=== PATIENT | male | born 1930 | race Caucasian/White ===

== ENCOUNTER → 2016-11-07 | Outpatient (CLI) | payer BC ==
[~2016-11-07] MED LIST: AMLO-114 PO; AMLO10TA2 PO; ATEN50TA8 PO; CARB1TAB59 PO; CARB25TA12 PO; CARB50TA3 PO; GABA-112 PO; HYDR-5688 PO; IPRA1AER2 INH; NAPR1TAB9 PO; NXM/40 PO; PRAV20TA PO; PRED1SUS3 OPL; RIVA1TAB4 PO; SIMV20TA2 PO; SPRIN/30 INH; TAMS0.4C38 PO; TIOTCAP INH; TRAM-10 PO; TRAM-453 PO
[2016-11-07 14:34] LABS: BASO % 0.3 %; BASO ABS # 0.03 K/uL (0-0.2); COMPLETE YES; EOS % 1.6 %; HEMATOCRIT 44.2 % (42-52); IG% 0.1 %; LYMPH % 21.9 %; LYMPH ABS # 2.37 K/uL (1.2-3.4); MEAN CELL VOLUME 94.8 fL (80-100); MEAN CORPUSCULAR HEMOGLOBIN 32.2 pg (25-34); MEAN CORPUSCULAR HGB CONC 33.9 g/dl (32-36); MEAN PLATELET VOLUME 11.9 fL (7.4-10.4); MONO % 6.5 %; NEUT % 69.6 %; PLATELET COUNT 155 K/uL (130-400); RED BLOOD COUNT 4.66 M/uL (4.7-6.1); WHITE BLOOD COUNT 10.81 K/uL (4.8-10.8)
[2016-11-07 14:48] LABS: ALT/SGPT 9 U/L (12-78); AST/SGOT 15 U/L (15-37); BLOOD UREA NITROGEN 19 mg/dl (7-18); BUN/CREATININE RATIO 19.3 (10-20); CALCIUM 9.2 mg/dl (8.5-10.1); CARBON DIOXIDE 28 mmol/L (21-32); CHLORIDE 103 mmol/L (98-107); CREATININE 0.96 mg/dl (0.60-1.40); GLUCOSE 89 mg/dl (70-99); SODIUM 139 mmol/L (136-145)
[2016-11-07 14:52] LABS: ALB/GLOB RATIO 1.3 (0.9-2); ALKALINE PHOSPHATASE 81 U/L (45-117); CHOLESTEROL 119 mg/dl (0-200); CHOLESTEROL/HDL RATIO 3.1; HDL CHOLESTEROL 38 mg/dl; LDL CHOLESTEROL CALCULATED 61 mg/dl; TOTAL IRON BINDING CAPACITY 277 mcg/dl (250-450); TRIGLYCERIDES 100 mg/dl (0-150); VERY LOW DENSITY LIPOPROT CALC 20 mg/dl
--- NOTE | 2016-11-15 06:31 | CODING QUERY MEDICAL NECESSITY ---
SUPPORTING DIAGNOSIS NEEDED A supporting diagnosis is required for the test/procedure performed on this patient in order for us to be reimbursed by the patient's insurance. Please provide a supporting diagnosis for the following test/procedure listed below next to the test name along with your signature. *If there is no additional diagnosis for this patient that would support the following test/procedure please document that below next to the test/procedure. Test(s)/Procedure(s) that require a supporting diagnosis: DOS 11/07 * Vitamin B12 DIAGNOSIS: * Iron DIAGNOSIS: Provider Signature: Date: Thank you Zahra Jimenez Health Information Management Once completed, please kindly fax back to [phone] For questions please call [phone]
--- NOTE | 2016-11-15 06:33 | EDITING REQUIRED CODING QUERY ---
SUPPORTING DIAGNOSIS NEEDED A supporting diagnosis is required for the test/procedure performed on this patient in order for us to be reimbursed by ([employer]). Please provide a supporting diagnosis for the following tests listed below next to the test name along with your signature. *If there is no additional diagnosis for this patient that would support the following test/procedure please document that below next to the test/procedure. Tests that require a supporting diagnosis: DOS 11/07 * Vitamin B12 DIAGNOSIS: Tingling R20.2 * Iron DIAGNOSIS: Prediabetes R73.09 Providers Signature: Thank you Zahra Jimenez
== END | disposition home or self-care (01) ==
LOC: C.LAB1850 12:42
PROVIDERS: ATTEND Internal Medicine Cardiovascular Disease
DX: E78.00 Pure hypercholesterolemia, unspecified (principal); I25.10 Atherosclerotic heart disease of native coronary artery without angina pectoris; D72.829 Elevated white blood cell count, unspecified; I71.4 Abdominal aortic aneurysm, without rupture; R20.2 Paresthesia of skin; R73.09 Other abnormal glucose

== ENCOUNTER → 2017-05-15 | Outpatient (CLI) | payer BC ==
[~2017-05-15] MED LIST changes: -ATEN50TA8 PO
--- NOTE | 2017-05-15 09:36 | DIAGNOSTIC IMAGING REPORT ---
ABDOMEN 2VIEW W/PA CHEST RTN HISTORY:87 [id number] Fecal incontinence COMPARISON: Thoracic spine radiographs 10/23/2012 TECHNIQUE: Frontal view of the chest with erect and supine views of the abdomen. FINDINGS: The lungs are hyperinflated. There is atherosclerosis of the aorta. Cardiac silhouette is within normal limits. No pneumothorax, pleural effusion, focal airspace consolidation or overt pulmonary edema. No gross pneumoperitoneum on the upright projection. There is moderate to extensive volume of formed stool seen throughout the midabdomen. The bowel gas pattern appears to be nonobstructive. No definite urolith. Atherosclerosis of the aorta and iliac vasculature noted. Moderate degenerative changes are seen within the hips and throughout the spine. IMPRESSION: 1. Hyperinflation without acute cardiopulmonary process. 2. Nonobstructive bowel gas pattern without pneumoperitoneum. 3. Moderate to extensive colonic stool volume may reflect constipation within the appropriate clinical setting. The above report was generated using voice recognition software. It may contain grammatical, syntax or spelling errors. Electronically signed by: Jed Pederson 05/15/2017 9:34 AM Dictated Date/Time: 05/15/2017 9:31 AM
== END | disposition home or self-care (01) ==
LOC: C.RAD1850 09:04
PROVIDERS: ATTEND Physician Assistant
DX: R15.9 Full incontinence of feces (principal)

== ENCOUNTER → 2017-05-17 | Outpatient (CLI) | payer BC ==
[~2017-05-17] MED LIST changes: -AMLO10TA2 PO; -CARB1TAB59 PO; -HYDR-5688 PO; -IPRA1AER2 INH; -NAPR1TAB9 PO; -PRAV20TA PO; -RIVA1TAB4 PO; -SPRIN/30 INH; -TAMS0.4C38 PO; -TRAM-453 PO
--- NOTE | 2017-05-17 13:00 | DIAGNOSTIC IMAGING REPORT ---
ABDOMEN 2 VIEWS CLINICAL HISTORY: CONSTIPATION COMPARISON STUDY: 05/15/2017 FINDINGS: There is persistent fecal retention. There are no transition zones indicate bowel obstruction. No free air is visualized. There are upper abdominal calcifications. While these may in part be vascular, renal calcifications cannot be excluded. IMPRESSION: 1. No evidence of bowel obstruction. No evidence of free air 2. Moderate fecal retention similar to the prior study Electronically signed by: Viet Aragon M.D. 05/17/2017 12:58 PM Dictated Date/Time: 05/17/2017 12:56 PM
== END | disposition home or self-care (01) ==
LOC: C.RAD1850 12:14
PROVIDERS: ATTEND Physician Assistant
DX: K59.00 Constipation, unspecified (principal)

== ENCOUNTER → 2017-05-22 | Day surgery (SDC) | payer BC ==
[2017-04-25 15:13] VITALS: Ht 182.9 cm; Wt 89.5 kg
[~2017-05-22] VITALS: Ht 182.9 cm; Wt 89.5 kg
[~2017-05-22] MED LIST changes: +500ML BSS 0.3ML EPI 1:1000PF IRRIG ONE; +ACETAMINOPHEN 325 MG TAB PO PRN; +AMLO10TA2 PO; +AMVISC PLUS 0.8ML SYRINGE INT OCU ONE; +ATROPINE SULFATE 0.1 MG/ML 5ML SYR IV PRN; +BSS FLUSH ONE; +CARB1TAB59 PO; +CYCLOPENTOLATE HCL 1% OP SOLN PER DROP CHARGE OPL SCH; +EpHEDrine SULFATE INJ 50 MG/ML AMP IV PRN; +EpINEphrine INJ 1MG/ML AMP 1 MG/ML AMP ONE; +FENTANYL CITRATE INJ 50 MCG/1 ML 2 ML VIAL IV PRN; +HYDR-5688 PO; +IPRA1AER2 INH; +LACTATED RINGER'S 1000ML 500 ML IV SCH; +LIDOCAINE 3.5% OPH GEL PER APPLICATION CHARGE ONE; +LIDOCAINE HCL 1% MPF 2 ML VIAL ONE; +MIDAZOLAM HCL 1 MG/ML 2ML VIAL ONE; +NAPR1TAB9 PO; +OCUCOAT 1 ML SOLN IO ONE; +ONDANSETRON INJ 2 MG/ML 2 ML VIAL IV PRN; +PHENYLEPHRINE HCL 10% OP SOLN PER DROP CHARGE OPL SCH; +POVIDONE-IODINE OP SOLN 30 ML BTL ONE; +PRAV20TA PO; +PROPARACAINE 0.5% OP SOLN PER DROP CHARGE OPL SCH; +RIVA1TAB4 PO; +SPRIN/30 INH; +TAMS0.4C38 PO; +TOBRAMYCIN/DEXAMETHASONE OPH OINT PER APPLN CHARGE ONE; +TRAM-453 PO
[2017-05-22] MEDS: PHENYLEPHRINE HCL 2.5% OP SOLN PER DROP CHARGE OPL SCH ×2 (06:52→06:59)
[2017-05-22] MEDS: TROPICAMIDE 1% OP SOLN PER DROP CHARGE OPL SCH ×2 (06:53→07:01)
[2017-05-22] MEDS: KETOROLAC 0.5% OP SOLN PER DROP CHARGE OPL SCH ×2 (06:55→07:12)
[2017-05-22] MEDS: GATIFLOXACIN OP SOLN PER DROP CHARGE OPL SCH ×2 (06:56→07:12)
--- NOTE | 2017-05-22 06:57 | History & Physical Bridge - SC ---
H&P Re-Evaluation Bridge Note: I have examined the patient, reviewed the History & Physical and in the interval since the performance of the History & Physical I have noted the following changes of clinical significance: Diagnosis: Left Cataract Procedure: Left Cataract Removal with Lens Implant No changes noted
--- NOTE | 2017-05-22 07:51 | [facility] Operative Report ---
Operative Report Date of Service May 22, 2017. Operative Report 1. PREOPERATIVE DIAGNOSIS: Cataract of the left eye. 2. POSTOPERATIVE DIAGNOSIS: Same. 3. PROCEDURE: Phacoemulsification with intraocular lens implantation of the left eye. SURGEON: Dr. Napoleon Da Silva. ANESTHESIA: Topical Lidocaine gel, 1% Non- Preserved intracameral Lidocaine, and monitored intravenous sedation. INDICATIONS FOR THE PROCEDURE: The patient is a 87 - year-old male with a history of cataract of the left eye causing significant visual impairment. The details of the proposed procedure were explained to the patient who asked appropriate questions and following discussion of all risks, benefits and alternatives agreed to have the procedure done. 4. OPERATION AND FINDINGS: DESCRIPTION OF PROCEDURE: After informed consent was obtained, the patient was brought to the Operating Room at the [facility]. The patient was placed in a supine position and then the left eye was prepped and draped in the usual sterile fashion for intraocular surgery. A drop of topical Lidocaine gel was placed in the operative eye. A wire lid speculum was then placed in the fornices. A corneal paracentesis was then created temporally. The Non-Preserved Lidocaine was then instilled into the anterior chamber. The anterior chamber was then pressurized with viscoelastic. A 2.0 mm clear corneal incision was then created temporally. A cystotome was inserted into the anterior chamber and used to create a tear in the anterior lens capsule. This capsular tear was then used to create a small flap and the flap was dragged in a counterclockwise direction in order to create a continuous curvilinear capsulorrhexis. Hydrodissection was accomplished with balanced salt solution. Phacoemulsification of the lens nucleus was then performed in a standard [id number] technique. The phaco time was 36 seconds with an average power of 20 %. The remaining cortical material was removed using irrigation aspiration. The capsular bag was then filled with viscoelastic. A [employer] Lomb MI60L +19.0 diopters lens was then loaded into the injector and injected into the capsular bag. The remaining viscoelastic was removed with the irrigation aspiration handpiece. The wound was hydrated and then checked and found to be watertight. The intraocular pressure was checked and found to be adequate. The wire lid speculum was removed and the patient's face was cleaned and dried. TobraDex ointment was placed in the inferior fornix. The patient was discharged to the Recovery Room having tolerated the procedure well. There were no complications. The patient will be seen tomorrow in the office for follow-up. I attest to the content of the Intraoperative Record and any orders documented therein. Any exceptions are noted below.
--- NOTE | 2017-05-22 07:51 | Discharge Instructions-SurgCtr ---
Discharge Instructions Date of Service May 22, 2017. Visit Reason for Visit: Left Cataract Discharge Discharge Diagnosis / Problem: cataract Discharge Goals Goal(s): Improve function Activity Recommendations Activity Limitations: per Instructions/Follow-up section Anesthesia . Post Anesthesia Instructions: If you have had General Anesthesia or IV Sedation: * Do not drive today. * Resume driving when surgeon permits. * Do not make important decisions or sign legal documents today. * Call surgeon for: 1. Temperature elevations greater than 101 degrees F. 2. Uncontrollable pain. 3. Excessive bleeding. 4. Persistent nausea and vomiting. 5. Medication intolerance (nausea, vomiting or rash). * For nausea and vomiting use only clear liquids such as: tea, soda, bouillon until nausea subsides, then gradually increase diet as tolerated. * If you have any concerns or questions, call your surgeon's office. If physician is unavailable and it is an emergency, call 911 or go to the nearest emergency room. . Instructions / Follow-Up Instructions / Follow-Up ACTIVITY RECOMMENDATIONS: * No strenuous lifting, jogging or running for 4 days * No swimming or yard work for 1 week. * Limited bending is permitted, such as putting on shoes. RETURN TO SCHOOL/WORK: No work until seen by physician in office. MEDICATIONS: Resume previous medications unless instructed otherwise by your surgeon. This includes eye drops for glaucoma. Zymaxid/Gatifloxacin (leigh cap) - one drop every 2 hours until bedtime Nevanac/Ilevro/Prolensa/Ketorolac (quinones cap) - one drop every 4 hours until bedtime Prednisolone/Durezol (white/pink cap, SHAKE WELL) - one drop every 2 hours until bedtime Starting tomorrow - all 3 drops every 4 hours until seen in the office Optive drops - as needed for discomfort SPECIAL CARE INSTRUCTIONS: * Wear eyeshield when sleeping, for four nights. * You may wear your own glasses or sunglasses while awake. * You may read or watch TV * You may shower and wash your face, but be gentle around the eye and pat dry. * Blurry vision and mild irritation are normal. * Call office if pain is more severe or vision becomes dark at . FOLLOW UP VISIT: Follow-up with Dr Da Silva tomorrow. Diet Recommendations Home Diet: resume previous diet Pending Studies Studies pending at discharge: no Medical Emergencies . Who to Call and When: Medical Emergencies: If at any time you feel your situation is an emergency, please call 911 immediately. . Non-Emergent Contact Non-Emergency issues call your: Crocheter . . "Provider Documentation" section prepared by Napoleon Da Silva. .
[2017-05-22 07:57] VITALS: TEMP 36.2
--- NOTE | 2017-05-22 08:09 | Anesthesia Progress Nt - [facility] ---
Anesthesia Post Op Note Date & Time May 22, 2017 at 08:09 Vital Signs Pain Intensity: 0 Vital Signs Past 12 Hours Date Time Temp Pulse Resp B/P (MAP) Pulse Ox O2 Delivery O2 Flow Rate FiO2 05/22/17 07:57 36.2 61 18 128/87 (101) 97 Room Air 05/22/17 06:39 36.5 71 20 122/75 (91) 95 Room Air Notes Mental Status: alert / awake / arousable, participated in evaluation Pt Amnestic to Procedure: Yes Nausea / Vomiting: adequately controlled Pain: adequately controlled Airway Patency, RR, SpO2: stable & adequate BP & HR: stable & adequate Hydration State: stable & adequate Anesthetic Complications: no major complications apparent
[2017-05-22 08:19] VITALS: BP 135/81; PULSE 66; O2SAT 97
== END | disposition home or self-care (01) ==
LOC: X.SURG 06:26
PROVIDERS: ATTEND Ophthalmology
DX: H26.9 Unspecified cataract (principal); I71.4 Abdominal aortic aneurysm, without rupture; I25.10 Atherosclerotic heart disease of native coronary artery without angina pectoris; I10 Essential (primary) hypertension; I48.92 Unspecified atrial flutter; J44.9 Chronic obstructive pulmonary disease, unspecified; E78.5 Hyperlipidemia, unspecified; G20 Parkinson's disease; R73.03 Prediabetes; N40.1 Benign prostatic hyperplasia with lower urinary tract symptoms; N13.8 Other obstructive and reflux uropathy; K21.9 Gastro-esophageal reflux disease without esophagitis; G62.9 Polyneuropathy, unspecified; F41.9 Anxiety disorder, unspecified; Z79.899 Other long term (current) drug therapy

== ENCOUNTER → 2017-05-24 | Outpatient (CLI) | payer BC ==
[~2017-05-24] MED LIST changes: -500ML BSS 0.3ML EPI 1:1000PF IRRIG ONE; -ACETAMINOPHEN 325 MG TAB PO PRN; -AMVISC PLUS 0.8ML SYRINGE INT OCU ONE; -ATROPINE SULFATE 0.1 MG/ML 5ML SYR IV PRN; -BSS FLUSH ONE; -CYCLOPENTOLATE HCL 1% OP SOLN PER DROP CHARGE OPL SCH; -EpHEDrine SULFATE INJ 50 MG/ML AMP IV PRN; -EpINEphrine INJ 1MG/ML AMP 1 MG/ML AMP ONE; -FENTANYL CITRATE INJ 50 MCG/1 ML 2 ML VIAL IV PRN; -LACTATED RINGER'S 1000ML 500 ML IV SCH; -LIDOCAINE 3.5% OPH GEL PER APPLICATION CHARGE ONE; -LIDOCAINE HCL 1% MPF 2 ML VIAL ONE; -MIDAZOLAM HCL 1 MG/ML 2ML VIAL ONE; -OCUCOAT 1 ML SOLN IO ONE; -ONDANSETRON INJ 2 MG/ML 2 ML VIAL IV PRN; -PHENYLEPHRINE HCL 10% OP SOLN PER DROP CHARGE OPL SCH; -POVIDONE-IODINE OP SOLN 30 ML BTL ONE; -PROPARACAINE 0.5% OP SOLN PER DROP CHARGE OPL SCH; -TOBRAMYCIN/DEXAMETHASONE OPH OINT PER APPLN CHARGE ONE
== END | disposition home or self-care (01) ==
LOC: C.LAB1850 10:14
PROVIDERS: ATTEND Physician Assistant
DX: R19.7 Diarrhea, unspecified (principal)

== ENCOUNTER 2017-06-17 15:59 | Emergency (ER) | payer BC ==
[~2017-06-17] VITALS: Ht 185.4 cm; Wt 88.2 kg
[~2017-06-17 15:59] MED LIST changes: -AMLO10TA2 PO; -CARB1TAB59 PO; -GABA-112 PO; -HYDR-5688 PO; -IPRA1AER2 INH; -NAPR1TAB9 PO; -PRAV20TA PO; -RIVA1TAB4 PO; -SPRIN/30 INH; -TAMS0.4C38 PO; -TRAM-10 PO; -TRAM-453 PO
[2017-06-17 16:01] VITALS: BP 140/90; PULSE 81; TEMP 36.8; O2SAT 98; Ht 185.4 cm; Wt 88.2 kg
[2017-06-17] MEDS ORDERED: HYDR-5688 PO (16:11)
--- NOTE | 2017-06-17 16:25 | EMERGENCY ROOM VISIT NOTE ---
ED Visit Note First contact with patient: 16:05 I have seen and examined this patient with the PA and generally agree with the treatment plan as discussed. Patient states feeling better, was unable to remove the piece of his hearing aid at home. The PA was able to remove this easily, rest patient's ear canal and tympanic membranes are normal in appearance. No residual bleeding or swelling after removal of foreign body. Patient will be discharged home.
[2017-06-17] MEDS ORDERED: NAPR1TAB9 PO (16:42)
[2017-06-17] MEDS ORDERED: TAMS0.4C38 PO (16:42)
--- NOTE | 2017-06-18 00:33 | EMERGENCY ROOM VISIT NOTE ---
ED Visit Note First contact with patient: 16:05 Chief Complaint: I have piece of my hearing aid stuck in my right ear. History of Present Illness: Mr. Sotelo is an 87 or old gentleman who ambulates into the ED complaining of a foreign body in the right ear canal. Patient reports approximately one hour ago he was attempting to take his hearing aid out of his right ear and part of the earplug fell off and stuck in his right ear canal. He reports himself and his have made multiple attempts to remove the earplug but have been unsuccessful. He denies any associated symptoms including ear pain, ear drainage, headache, dizziness, lightheadedness, fevers, chills, vomiting. Review of Systems: As noted above in history of present illness. Past Medical History: Coronary artery disease, abdominal aortic aneurysm, hypertension, dyslipidemia, COPD, Parkinson's, atrial flutter, [place]'s esophagus, skin cancer, polyneuropathy, spinal stenosis, essential tremor, status post stent placement and PTCA. Current Medications: Medications Dose Route/Sig Max Daily Dose Days Date Category Dose Instructions Aleve (Naproxen) 220 Mg Tab 220 Mg PO UD PRN 06/17/17 Reported TAKE PER PACKAGE DIRECTIONS Xarelto (Rivaroxaban) 20 Mg Tab 20 Mg PO DAILY 06/17/17 Reported Pravachol (Pravastatin Sodium) 20 Mg Tab 20 Mg PO DAILY 06/17/17 Reported Combivent Respimat (Ipratropium-Albuterol) 1 Aer Aer 1 Puff INH QID 06/17/17 Reported Flomax (Tamsulosin Hcl) 0.4 Mg Cap 0.4 Mg PO DAILY 06/17/17 Reported Sinemet Cr 50-200 mg (Carbidopa-Levodopa) 1 Tab Tab 1 Tab PO BID 06/17/17 Reported Norvasc (Amlodipine Besylate) 10 Mg Tab 10 Mg PO DAILY 06/17/17 Reported Spiriva Handihaler (Tiotropium [place]) 30 Puff/540 Mcg Aerp 1 Cap INH DAILY 06/17/17 Reported Neurontin (Gabapentin) 100 Mg Cap 200 Mg PO TID 05/22/17 Reported Nexium (Esomeprazole Magnesium) 40 Mg Capcr 40 Mg PO DAILY 04/25/17 Reported Sinemet 25MG/100MG (Carbidopa/Levodopa) Tab 1 Tab PO 5XD 04/25/17 Reported Ultram (Tramadol HCl) 50 Mg Tab 50 Mg PO TID PRN 09/30/10 Reported Allergies to Medications: Patient denies. Social History: Patient is not currently employed; he feels safe in his home environment; he admits to tobacco use. Physical Examination: Vital Signs: Date Time Temp Pulse Resp B/P (MAP) Pulse Ox O2 Delivery O2 Flow Rate FiO2 06/17/17 16:01 36.8 81 18 140/90 98 Room Air GENERAL: 87-year-old male in acute distress, nontoxic-appearing, afebrile and hemodynamically stable. NEUROLOGICAL: Awake, alert and oriented to person, place and time. Answering questions appropriately and following commands. Normal gait. Good hand eye coordination. SKIN: Warm, dry and pink. EARS: No external tenderness or erythema. Right on occurred canal has a visual foreign body. After removal of the foreign body the ear was reexamined and showed no signs of trauma. There is no erythema or edema. No signs of perforated membrane. ED Course: Patient is assessed as noted above. Medication list was reviewed. Patient's foreign body was removed with a pair of mosquito forceps easily on the first attempt. Patient was educated about today's findings and instructed on his treatment plan ; he verbalized understanding and agreement with this plan. Clinical Impression: Acute right ear foreign body. Disposition: Patient discharged home in stable condition; prior to departure he was reassessed and subjectively reported he was still pain and symptom-free. Plan: Patient was encouraged use [id number] pain medications as needed for pain. Patient was encouraged to follow-up with family physician or the construction specialist as needed. Patient was encouraged return ED for pain, ear drainage, bleeding from the ear or any new/concerning symptoms.
[2017-06-29] MEDS ORDERED: GABA-112 PO (06:36)
== END 2017-06-17 16:28 | disposition home or self-care (01) ==
LOC: C.EDB 16:00 → C.EDD 16:28
DX: T16.1XXA Foreign body in right ear, initial encounter (principal); X58.XXXA Exposure to other specified factors, initial encounter

== ENCOUNTER 2017-06-29 09:52 | Emergency (ER) | payer BC, OTHER ==
[~2017-06-29] VITALS: Ht 185.4 cm; Wt 87.8 kg
[~2017-06-29 09:52] MED LIST changes: -AMLO-114 PO; -CARB50TA3 PO; +GABA-112 PO; +NAPR1TAB9 PO; -PRED1SUS3 OPL; -SIMV20TA2 PO; +TAMS0.4C38 PO; -TIOTCAP INH
[2017-06-29 10:00] VITALS: TEMP 36.8; Ht 185.4 cm; Wt 87.8 kg
[2017-06-29] MEDS ORDERED: SODIUM CHLORIDE 0.9% 500ML 500 ML IV STA (10:12)
[2017-06-29 10:31] VITALS: O2SAT 95
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
[2017-06-29 10:51] LABS: ISTAT CREATININE 0.7 mg/dl (0.6-1.3); ISTAT HEMOGLOBIN 14.3 g/dl (14.0-18.0); ISTAT IONIZED CALCIUM 1.21 mmol/l (1.12-1.32)
[2017-06-29 11:08] LABS: BASO % 0.2 %; BASO ABS # 0.02 K/uL (0-0.2); COMPLETE YES; EOS % 1.9 %; HEMATOCRIT 41.2 % (42-52); IG% 0.5 %; LYMPH % 14.1 %; LYMPH ABS # 1.57 K/uL (1.2-3.4); MEAN CELL VOLUME 93.8 fL (80-100); MEAN CORPUSCULAR HEMOGLOBIN 32.6 pg (25-34); MEAN CORPUSCULAR HGB CONC 34.7 g/dl (32-36); MEAN PLATELET VOLUME 11.1 fL (7.4-10.4); NEUT % 77.3 %; PLATELET COUNT 148 K/uL (130-400); RED BLOOD COUNT 4.39 M/uL (4.7-6.1)
[2017-06-29 11:16] LABS: BUN/CREATININE RATIO 15.8 (10-20); CREATININE 0.75 mg/dl (0.60-1.40); POTASSIUM 3.5 mmol/L (3.5-5.1)
[2017-06-29 11:21] LABS: CKMB/CK RATIO 2.8 (0-3.0)
[2017-06-29] MEDS ORDERED: OPTIRAY 320 IV PRN (11:30)
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
[2017-06-29] MEDS ORDERED: TRAM-10 PO (11:51)
[2017-06-29 12:07] LABS: URINE BILIRUBIN NEG (NEG); URINE COLOR YELLOW; URINE NITRITE NEG (NEG); URINE SPECIFIC GRAVITY 1.017 (1.000-1.030); UROBILINOGEN NEG (NEG)
[2017-06-29 12:09] LABS: MANUAL MICROSCOPIC REQUIRED? NO; REVIEW REQ? NO
[2017-06-29] MEDS ORDERED: TRAM-453 PO (12:31)
[2017-06-29 13:03] VITALS: BP 142/86; PULSE 80; O2SAT 95
[2017-06-29] MEDS ORDERED: PRAV20TA PO (16:42)
[2017-06-29] MEDS ORDERED: IPRA1AER2 INH (16:42)
[2017-06-29] MEDS ORDERED: SPRIN/30 INH (16:42)
[2017-06-29] MEDS ORDERED: AMLO10TA2 PO (16:42)
[2017-06-29] MEDS ORDERED: RIVA1TAB4 PO (16:42)
[2017-06-29] MEDS ORDERED: CARB1TAB59 PO (16:42)
== END 2017-06-29 13:09 | disposition home or self-care (01) ==
LOC: EDBD 09:52 → C.EDC 09:55
DX: S22.20XA Unspecified fracture of sternum, initial encounter for closed fracture (principal); V89.2XXA Person injured in unspecified motor-vehicle accident, traffic, initial encounter; K21.9 Gastro-esophageal reflux disease without esophagitis; G20 Parkinson's disease; C44.91 Basal cell carcinoma of skin, unspecified; F17.200 Nicotine dependence, unspecified, uncomplicated

== ENCOUNTER → 2017-10-09 | Outpatient (CLI) | payer BC ==
[~2017-10-09] MED LIST changes: +AMLO10TA2 PO; +CARB1TAB59 PO; -CARB25TA12 PO; +IPRA1AER2 INH; -NAPR1TAB9 PO; -NXM/40 PO; +PRAV20TA PO; +RIVA1TAB4 PO; +SPRIN/30 INH; -TAMS0.4C38 PO; +TRAM-10 PO
[2017-10-09 14:41] LABS: BASO % 0.3 %; BASO ABS # 0.03 K/uL (0-0.2); COMPLETE YES; EOS % 2.7 %; HEMATOCRIT 42.6 % (42-52); IG% 0.2 %; LYMPH % 19.4 %; LYMPH ABS # 2.22 K/uL (1.2-3.4); MEAN CELL VOLUME 94.5 fL (80-100); MEAN CORPUSCULAR HEMOGLOBIN 32.2 pg (25-34); MEAN PLATELET VOLUME 11.3 fL (7.4-10.4); MONO % 10.2 %; NEUT % 67.2 %; PLATELET COUNT 144 K/uL (130-400); RED BLOOD COUNT 4.51 M/uL (4.7-6.1); WHITE BLOOD COUNT 11.43 K/uL (4.8-10.8)
[2017-10-09 15:15] LABS: ALT/SGPT 8 U/L (12-78); AST/SGOT 11 U/L (15-37); BLOOD UREA NITROGEN 12 mg/dl (7-18); BUN/CREATININE RATIO 14.4 (10-20); CALCIUM 8.8 mg/dl (8.5-10.1); CARBON DIOXIDE 28 mmol/L (21-32); CHLORIDE 104 mmol/L (98-107); CREATININE 0.85 mg/dl (0.60-1.40); GLUCOSE 91 mg/dl (70-99); POTASSIUM 3.8 mmol/L (3.5-5.1); SODIUM 136 mmol/L (136-145)
[2017-10-09 15:26] LABS: ALB/GLOB RATIO 1.3 (0.9-2); ALKALINE PHOSPHATASE 63 U/L (45-117); CHOLESTEROL 93 mg/dl (0-200); CHOLESTEROL/HDL RATIO 3.2; HDL CHOLESTEROL 29 mg/dl; LDL CHOLESTEROL CALCULATED 46 mg/dl; TRIGLYCERIDES 90 mg/dl (0-150); VERY LOW DENSITY LIPOPROT CALC 18 mg/dl
[2017-10-10 06:23] LABS: ESTIMATED AVERAGE GLUCOSE 108 mg/dl; HA1C FLAG Normal (Normal)
== END | disposition home or self-care (01) ==
LOC: C.LAB1850 13:58
PROVIDERS: ATTEND Internal Medicine Cardiovascular Disease
DX: I25.10 Atherosclerotic heart disease of native coronary artery without angina pectoris (principal); R63.4 Abnormal weight loss

== ENCOUNTER → 2017-10-23 | Outpatient (CLI) | payer BC ==
--- NOTE | 2017-10-23 10:57 | DIAGNOSTIC IMAGING REPORT ---
L WRIST MIN 3 VIEWS ROUTINE CLINICAL HISTORY: 87 years-old Male presenting with FALL, PAIN,WRIST JOINT. TECHNIQUE: Frontal, bilateral oblique, and lateral views of the left wrist were obtained. COMPARISON: None. FINDINGS: Osteopenia suggested. Minimally displaced extra-articular fracture of the distal radial metaphysis. No significant angulation. Nondisplaced fracture of the ulnar styloid may also be present. Cystic change likely degenerative in etiology at the distal pole of the scaphoid. Mild soft tissue swelling at the wrist. IMPRESSION: Minimally displaced extra-articular fracture of the distal radial metaphysis. Possible nondisplaced ulnar styloid fracture. Osteopenia. Electronically signed by: Manny Hernandez M.D. 10/23/2017 10:56 AM Dictated Date/Time: 10/23/2017 10:54 AM
== END | disposition home or self-care (01) ==
LOC: C.RAD1850 10:19
PROVIDERS: ATTEND Physician Assistant
DX: S52.552A Other extraarticular fracture of lower end of left radius, initial encounter for closed fracture (principal); W19.XXXA Unspecified fall, initial encounter; M85.88 Other specified disorders of bone density and structure, other site

== ENCOUNTER → 2018-06-17 | Outpatient (CLI) | payer BC ==
[~2018-06-17] MED LIST changes: +AMLO5TAB3 PO; +PRAM0.1212 PO; +PRLSR20 PO; +TAMS0.4C38 PO
--- NOTE | 2018-06-17 14:49 | DIAGNOSTIC IMAGING REPORT ---
TWO VIEW CHEST CLINICAL HISTORY: Weight loss. Cough. FINDINGS: AP and lateral chest radiographs are compared to study dated 05/15/2017 and correlated with chest CT dated 06/29/2017. The AP views are degraded by patient rotation. The heart is enlarged and there is atherosclerotic calcification of the thoracic aorta. The pulmonary vasculature is noncongested. Emphysema and chronic interstitial thickening are similar to previous. No airspace consolidation or pleural effusion is identified. There is no pneumothorax. The skeletal structures are osteopenic. The bony thorax appears intact. Degenerative change is noted throughout the thoracic spine and in the shoulders. A bone island is incidentally noted in the right anterior third rib. IMPRESSION: Cardiomegaly and emphysema with no active disease in the chest. Electronically signed by: Christian Arthur M.D. 06/17/2018 2:48 PM Dictated Date/Time: 06/17/2018 2:45 PM
== END | disposition home or self-care (01) ==
LOC: C.RAD1850 14:20
PROVIDERS: ATTEND Internal Medicine Cardiovascular Disease
DX: I51.7 Cardiomegaly (principal); J43.9 Emphysema, unspecified; R63.4 Abnormal weight loss

== ENCOUNTER 2018-06-26 13:50 | Emergency (ER) | payer BC ==
[~2018-06-26] VITALS: Ht 185.4 cm; Wt 79.8 kg
[~2018-06-26 13:50] MED LIST changes: -AMLO5TAB3 PO; -PRAM0.1212 PO; -PRLSR20 PO; -TAMS0.4C38 PO
[2018-06-26 14:06] VITALS: TEMP 37.1
[2018-06-26] MEDS ORDERED: SODIUM CHLORIDE 0.9% 1000ML 500 ML IV STA (14:46)
[2018-06-26] MEDS ORDERED: SODIUM CHLORIDE 0.9% 1000ML 1,000 ML IV STA (14:46)
--- NOTE | 2018-06-26 14:54 | EMERGENCY ROOM VISIT NOTE ---
History Report prepared by Tanya: Napoleon Blake Under the Supervision of: Dr. Kee Wang M.D. First contact with patient: 14:24 Chief Complaint: UNABLE TO VOID Stated Complaint: UNABLE TO URINATE History of Present Illness The patient is a 88 year old male who presents to the Emergency Room with complaints of an inability to urinate x1 day. The patient states he has this off and on, and states this most current episode started last night. He states he does have an appointment with a Urologist (Dr. Daniels) to become established. The patient states he was able to urinate a very scant amount today. Pt denies LOC, headache, fevers, chills, diaphoresis, visual changes, neck pain , chest pain, breathing difficulties, nausea, vomiting, abdominal pain, back pain, melena, hematochezia, urinary symptoms, numbness, weakness, lymphadenopathy, rash, or other complaints. Source of History: patient Onset: 1 day Symptom Intensity: moderate Review of Systems See HPI for pertinent positives and negatives. A total of ten systems were reviewed and were otherwise negative. 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 Social History Smoking Status: Current Every Day Smoker Marital Status: Housing Status: lives with significant other Occupation Status: retired Current/Historical Medications Scheduled Amlodipine (Norvasc), 5 MG PO DAILY Carbidopa-Levodopa (Sinemet Cr 50-200 mg), 1 TAB PO BID Gabapentin (Neurontin), 200 MG PO TID Ipratropium-Albuterol (Combivent Respimat), 1 PUFF INH QID Omeprazole (Prilosec), 40 MG PO DAILY Pramipexole (Mirapex), 0.375 MG PO PM Rivaroxaban (Xarelto), 20 MG PO DAILY Tamsulosin Hcl (Flomax), 0.4 MG PO HS Tiotropium [place] (Spiriva Handihaler), 1 CAP INH DAILY Scheduled PRN Tramadol (Ultram), 50 MG PO TID PRN for Pain Allergies Coded Allergies: No Known Allergies (Unverified , 06/26/18) Physical Exam Vital Signs Date Time Temp Pulse Resp B/P (MAP) Pulse Ox O2 Delivery O2 Flow Rate FiO2 06/26/18 19:30 78 18 156/85 97 06/26/18 17:08 82 18 158/94 96 Room Air 06/26/18 16:09 81 15 169/88 98 Room Air 06/26/18 16:04 81 06/26/18 14:06 37.1 85 16 159/91 97 Room Air Physical Exam GENERAL: Age appropriate appearing. Awake, alert, well-appearing, in no distress HENT: Normocephalic, atraumatic. Oropharynx unremarkable. EYES: Normal conjunctiva. Sclera non-icteric. NECK: Supple. No nuchal rigidity. FROM. No masses. RESPIRATORY: Clear to auscultation. No wheezes. No rales. Normal respiratory effort. CARDIAC: Normal rate. Normal rhythm. No murmurs. No rubs. Extremities warm and well perfused. Pulses equal. No JVD. GI: Slight suprapubic tenderness with palpation. No CVA tenderness. Soft, non- distended. No rebound or guarding. No masses. RECTAL: Deferred. MUSCULOSKELETAL: Atraumatic. Chest examination reveals no tenderness. The back is symmetrical on inspection without obvious abnormality. There is no CVA tenderness to palpation. No joint edema. LOWER EXTREMITIES: Calves are equal size bilaterally and non-tender. No edema. No discoloration. NEURO: Normal sensorium. No sensory or motor deficits noted. SKIN: Chronic venous discoloration lower extremities but no edema. No rash or jaundice noted. Medical Decision & Procedures ER Provider Diagnostic Interpretation: Radiology results as stated below per my review and radiologist interpretation: ADDENDUM Upon further review, there is mild stranding suggested most pronounced posteriorly at the site of greatest tortuosity (for example series 3 image 192). This is new since the prior exam in 2009 and could raise concern for impending rupture. Vascular consultation is recommended for further evaluation at this time. The report will be called/faxed according to standard departmental protocol. Electronically signed by: Manny Hernandez M.D. 06/26/2018 4:28 PM Dictated Date/Time: 06/26/2018 4:26 PM ORIGINAL REPORT ABD/PELVIS WITHOUT FOR STONE CLINICAL HISTORY: 88 years-old Male presenting with lower abd pain, urinary symptoms. TECHNIQUE: Multidetector CT of the abdomen and pelvis was performed without the use of intravenous contrast. IV contrast: None. A dose lowering technique was used consistent with the principles of ALARA (as low as reasonably achievable). COMPARISON: 09/30/2010. CT DOSE (mGy.cm): The estimated cumulative dose is 661.03 mGy.cm. FINDINGS: Basin Operator topogram: Unremarkable. Lung bases: Minimal basilar opacities, likely atelectasis. Multichamber enlargement of the heart. Coronary artery calcification. No pericardial or pleural effusion. Liver: Normal morphology. No liver lesion. Patent hepatic vasculature. Biliary: No intrahepatic or extrahepatic biliary ductal dilatation. Gallbladder contains gallstones. Pancreas: Moderate parenchymal atrophy, however, masslike sparing of parenchymal atrophy in the body-tail. This focal masslike region measures 3.5 cm. Suggestion of internal low-density spaces may suggest side branch ductal dilatation. Similar though less pronounced appearance at the distal tail (series 3 image 113).. Spleen: Normal noncontrast appearance. Adrenal glands: Increased nodular thickening of the bilateral adrenal glands. Underlying nodules likely present. Kidneys and ureters: Multiple well-defined hypodensities in the kidneys, indeterminate but likely cysts. Punctate nonobstructing calculus at the left upper pole. Renal vascular calcification noted. No hydronephrosis. Ureters nondistended. Bladder: Bladder decompressed with a Elizondo catheter. Pelvic organs: Prostate enlargement likely secondary to benign prostatic hyperplasia. Bowel: Diverticulosis of the sigmoid colon, which contains a moderate stool burden. No bowel wall thickening or colonic inflammatory change suggested. Moderate stool burden also noted more proximally. No bowel obstruction. The duodenum is displaced anteriorly due to the large abdominal aortic aneurysm. Peritoneal cavity: Trace free fluid in the pelvis. Fluid is low-density. No retroperitoneal fluid. No pneumoperitoneum. Lymph nodes: No gross lymphadenopathy allowing for noncontrast technique. Vasculature: Atherosclerosis. Significant interval increase in size of the infrarenal abdominal aortic aneurysm. No significant stranding or adjacent inflammatory change or hematoma to suggest rupture. Evaluation is limited without intravenous contrast. Maximal diameter on nonreformatted images measures 5.8 cm allowing for tortuosity. Curved planar reformatted image demonstrates a maximal diameter of 5.8 cm and a length of 16.4 cm. The aorta is tortuous. The aneurysm sac does not extend beyond the aortic bifurcation. Abdominal wall: Normal. Musculoskeletal: Degenerative changes of the spine. IMPRESSION: 1. Significant interval increase in size of the infrarenal abdominal aortic aneurysm, which measures 5.4 cm in diameter. Allowing for noncontrast technique, no evidence of rupture. Further evaluation with contrast could be considered as clinically indicated. 2. Masslike region in the pancreatic body-tail. A cyst indeterminate. Underlying mass lesion of the pancreas cannot be excluded. Further evaluation on a nonurgent basis with a contrast-enhanced exam recommended. 3. Diverticulosis. 4. Moderate stool burden suggest constipation. 5. Punctate nonobstructing left renal calculus. No hydronephrosis. 6. Prostatomegaly. ANGIO ABD/PELVIS WITH CONTRAST CLINICAL HISTORY: 88 years-old Male presenting with aortic aneurysm. TECHNIQUE: Multidetector CT angiography of the abdomen and pelvis was performed after the administration of intravenous contrast. 3-D volumetric and/or maximum intensity projection (MIP) images were subsequently reconstructed for review. IV contrast: 116 mL of Optiray 320. A dose lowering technique was used consistent with the principles of ALARA (as low as reasonably achievable). Stenosis measurements were based on NASCET-like criteria. COMPARISON: Noncontrast CT performed earlier today. CT DOSE (mGy.cm): The estimated cumulative dose is 416.46 mGy.cm. FINDINGS: Basin Operator topogram: Unremarkable. Vasculature: Redemonstration of the infrarenal abdominal aortic aneurysm. Significant tortuosity the aneurysm sac. The abdominal aortic aneurysm extends from immediately distal to the renal arteries to the aortic bifurcation. The total length of this aneurysm sac is 16.1 cm. The proximal portion of the aneurysm sac straight the greatest degree of dilatation, measuring 5.9 cm in diameter. The aneurysm measures 4.7 cm in the midportion and 3.9 cm distally. There is a significant noncalcified ulcerated plaque along the right wall. The plaque is homogeneous in density and not suggestive of a crescent sign. The absence of hyperdensity within the plaque is corroborated on noncontrast images performed earlier today. The appearances trace stranding along the posterior and left lateral aspect of the hernia sac in the midportion is again noted. Some of this may represent small collateral vessels in small lymph nodes though the presence of fat infiltration/inflammatory change cannot be excluded. Remaining abdomen and pelvis: Lung bases: Minimal basilar opacities, likely atelectasis. Multichamber enlargement of the heart. Coronary artery calcification. No pericardial or pleural effusion. Liver: Normal morphology. No liver lesion allowing for the early arterial phase of contrast. Conventional hepatic arterial anatomy.. Biliary: No intrahepatic or extrahepatic biliary ductal dilatation. Gallbladder contains gallstones. Pancreas: Focal masslike sparing of parenchymal atrophy of the body-tail the pancreas. This region measures 3.5 cm and it may contain internal low density cystic regions. A smaller similar-appearing masslike sparing of parenchymal atrophy is also noted at the distal most tail (series 3 image 142). Spleen: Normal. Adrenal glands: Interval increase in nodular thickening of the bilateral adrenal glands, left greater than right. Kidneys and ureters: Multiple well-defined hypodensities in the kidneys, likely cysts. Punctate nonobstructing calculus at the left upper pole. Renal vascular calcification. No hydrocephalus. Ureters nondistended. Bladder: Bladder decompressed with a Elizondo catheter. Pelvic organs: Prostate enlargement likely secondary to benign prostatic hyperplasia. Bowel: Diverticulosis of the sigmoid colon. Hyperdensity in the sigmoid colon may represent a surgical or endoscopy clip (series 3 image 348). Additional hyperdensities within the colon may represent medication administration. Moderate stool burden. The hepatic flexure demonstrates suspected wall thickening (series 3 image 234). This appears circumferential and involves a length of 5 to 10 cm of the colon. No bowel obstruction. Anterior displacement of the duodenum secondary to the large abdominal aortic aneurysm. Peritoneal cavity: Trace free fluid in the pelvis. This fluid is low-density and not suggestive of hemorrhage. No retroperitoneal fluid. No pneumoperitoneum. Lymph nodes: No enlarged lymph nodes in the abdomen or pelvis. Abdominal wall: Normal. Musculoskeletal: Degenerative changes of the spine. IMPRESSION: 1. Infrarenal abdominal aortic aneurysm measuring up to 5.9 cm in diameter and extends from the renal arteries to the aortic bifurcation. Significant mural thrombus without evidence of acute hematoma either within the mural thrombus or in the surrounding soft tissues. Trace stranding is again noted. This may in part represent small collateral vessels and small lymph nodes though acute inflammation or edema cannot be excluded. Close clinical follow-up with vascular surgical consultation. 2. Circumferential wall thickening of the hepatic flexure of the colon along a length of 5 to 10 cm. This may be due to underdistention though true wall thickening cannot be excluded. Consider colonoscopy on a nonurgent basis versus imaging follow-up. 3. Masslike regions in the pancreatic body-tail and distal tail. Underlying pancreatic parenchymal masses cannot be excluded. This may represent focal regions of intraductal papillary mucinous neoplasms. Nonurgent dedicated pancreas CT or MR recommended on an outpatient basis. 4. Additional findings as above. Laboratory Results 06/26/18 15:00 Red Blood Count 4.11, Mean Corpuscular Volume 92.2, Mean Corpuscular Hemoglobin 32.4, Mean Corpuscular Hemoglobin Concent 35.1, Mean Platelet Volume 10.8, Neutrophils (%) (Auto) 70.0, Lymphocytes (%) (Auto) 17.6, Monocytes (%) (Auto) 9.4, Eosinophils (%) (Auto) 2.6, Basophils (%) (Auto) 0.2, Neutrophils # (Auto) 8.21, Lymphocytes # (Auto) 2.06, Monocytes # (Auto) 1.10, Eosinophils # (Auto) 0.30, Basophils # (Auto) 0.02 06/26/18 15:00 Test 06/26/18 15:00 06/26/18 15:30 White Blood Count 11.71 K/uL (4.8-10.8) Red Blood Count 4.11 M/uL (4.7-6.1) Hemoglobin 13.3 g/dL (14.0-18.0) Hematocrit 37.9 % (42-52) Mean Corpuscular Volume 92.2 fL (80-100) Mean Corpuscular Hemoglobin 32.4 pg (25-34) Mean Corpuscular Hemoglobin Concent 35.1 g/dl (32-36) Platelet Count 139 K/uL (130-400) Mean Platelet Volume 10.8 fL (7.4-10.4) Neutrophils (%) (Auto) 70.0 % Lymphocytes (%) (Auto) 17.6 % Monocytes (%) (Auto) 9.4 % Eosinophils (%) (Auto) 2.6 % Basophils (%) (Auto) 0.2 % Neutrophils # (Auto) 8.21 K/uL (1.4-6.5) Lymphocytes # (Auto) 2.06 K/uL (1.2-3.4) Monocytes # (Auto) 1.10 K/uL (0.11-0.59) Eosinophils # (Auto) 0.30 K/uL (0-0.5) Basophils # (Auto) 0.02 K/uL (0-0.2) RDW Standard Deviation 46.6 fL (36.4-46.3) RDW Coefficient of Variation 13.8 % (11.5-14.5) Immature Granulocyte % (Auto) 0.2 % Immature Granulocyte # (Auto) 0.02 K/uL (0.00-0.02) Anion Gap 9.0 mmol/L (3-11) Est Creatinine Clear Calc Drug Dose 81.6 ml/min Estimated GFR () 97.2 Estimated GFR (Non- 83.9 BUN/Creatinine Ratio 18.8 (10-20) Calcium Level 8.5 mg/dl (8.5-10.1) Total Bilirubin 0.6 mg/dl (0.2-1) Direct Bilirubin 0.2 mg/dl (0-0.2) Aspartate Amino Transf (AST/SGOT) 14 U/L (15-37) Alanine Aminotransferase (ALT/SGPT) 12 U/L (12-78) Alkaline Phosphatase 62 U/L (45-117) Total Protein 6.5 gm/dl (6.4-8.2) Albumin 3.5 gm/dl (3.4-5.0) Lipase 58 U/L (73-393) Urine Color YELLOW Urine Appearance CLEAR (CLEAR) Urine pH 6.5 (4.5-7.5) Urine Specific [place] 1.013 (1.000-1.030) Urine Protein NEG (NEG) Urine Glucose (UA) NEG (NEG) Urine Ketones NEG (NEG) Urine Occult Blood NEG (NEG) Urine Nitrite NEG (NEG) Urine Bilirubin NEG (NEG) Urine Urobilinogen NEG (NEG) Urine Leukocyte Esterase NEG (NEG) Laboratory results reviewed by me Medications Administered Medications (Trade) Dose Ordered Sig/Sariah Route Start Time Stop Time Status Last Admin Dose Admin Sodium Chloride 1,000 ml @ 125 mls/hr Q8H STAT IV 06/26/18 14:46 06/26/18 22:45 06/26/18 16:00 125 MLS/HR Sodium Chloride 500 ml @ 999 mls/hr Q31M STAT IV 06/26/18 14:46 06/26/18 15:16 DC 06/26/18 15:17 999 MLS/HR Gabapentin (Neurontin Cap) 200 mg NOW STAT PO 06/26/18 18:27 06/26/18 18:29 DC 06/26/18 18:48 200 MG Carbidopa/Levodopa (Sinemet Cr 50/ 200MG Tab) 1 tab NOW STAT PO 06/26/18 18:27 06/26/18 18:29 DC 06/26/18 18:48 1 TAB ED Course Bedside bladder scan showed a scant amount of urine in his bladder, 21mL. Rechecks: 1705: Reviewed results with patient. Advised of need for further imaging. 1900: Patient feeling better. Medical Decision Prior records/ancillary studies reviewed. Triage Nursing notes reviewed and agree them. Additional history obtained from patient's . The patient's history was concerning for difficulty urinating and abdominal pain. Differential diagnosis: Etiologies such as prostamegaly, prostatitis, constipation, diverticulitis, obstruction, mesenteric ischemia, aortic pathology, neurologic, renal colic, as well as others were entertained. Physical examination findings: As above. ER treatment provided: Elizondo catheter placement with 300 mL of urine removed Normal saline hydration with good resulting urine flow On reassessment the patient felt better. Diagnostics interpreted by me: The labs revealed a subtle leukocytosis on CBC. Chemistry panel was unremarkable. Urinalysis unremarkable. Imaging studies: CAT scans as above Consultation: A consultation was placed with the vascular surgeon on-call, Dr. Jon Hartman. The case was discussed and diagnostics were reviewed. He recommended CT angiography and this was performed. He did review the images. He felt that the patient should be followed up closely in the office but did not need emergent intervention. The patient presented with difficulty urinating. He is currently taking antibiotics for his recent dental surgery. There is no signs of urinary infection. On Elizondo catheter placement there was some difficulty passing the catheter and he then had a moderate amount of urine output, which was more than the bladder scan. The CT imaging did not reveal any significant renal disease or kidney stone. There were findings concerning for possible pancreatic mass as well as a significant abdominal aorta. The patient states he has had an aortic aneurysm evaluation in the past but thinks it was around 4 cm. Given the size a consult was placed with vascular surgery who recommended the imaging as above. This was performed. After that was resulted the patient was informed about the pancreatic mass and he will need to follow-up with his primary physician. He has a urology appointment in 7 days with not any urology. The catheter will remain in place as I suspect his prostate was a cause of his difficulty urinating. The patient will finish his antibiotic and continue current medications. He will need to follow-up with vascular surgery in the office regarding the significant AAA. The patient and his felt comfortable. I did discuss the significant issues regarding the AAA as well as the pancreas. I gave my usual and customary discussion regarding this issue. Patient was educated on the catheter. By the evaluation outlined above other emergent etiologies such as those listed in the differential, as well as others, were deemed relatively unlikely. The patient and were educated about the findings as listed above. All questions were answered and they were pleased with the treatment. Return instructions were outlined and the patient was discharged in stable condition. The patient was referred to vascular surgery, primary care, and urology for follow-up for a recheck of the current condition. Medication Reconcilliation Current Medication List: was personally reviewed by me Blood Pressure Screening Patient's blood pressure: Elevated blood pressure Blood pressure disposition: Referred to PCP Consults Consulting Physician: Dr. Hartman (Vascular Surgeon) Returned Call: [phone] Abdomen with Contrast and call back with results. Additional Consults: Consulted Physician: Dr. Hartman (Vascular Surgeon) Returned Call: [phone] Additional Comments: Reviewed results. States patient is able to be discharged and follow up in the office outpatient. Impression Primary Impression: Urinary retention Additional Impressions: Pancreatic mass AAA (abdominal aortic aneurysm) Scribe Attestation The scribe's documentation has been prepared under my direction and personally reviewed by me in its entirety. I confirm that the note above accurately reflects all work, treatment, procedures, and medical decision making performed by me. Departure Information Dispostion Home / Self-Care Referrals Yordy White M.D. (PCP) Forms HOME CARE DOCUMENTATION FORM, IMPORTANT VISIT INFORMATION, WORK / SCHOOL INSTRUCTIONS Patient Instructions My [facility] [employer] Additional Instructions Continue your antibiotic until finished. Acetaminophen(Tylenol) may be used for fever or pain. Use 1000mg every six hours as needed. Avoid using more than 3000mg in a 24 hour period. Continue current medications. Care for the catheter as discussed. Do not pull on the catheter. Use the leg bag during the day and the large bag at night when you are sleeping. Drain the bag frequently. Do not let it fill completely. Return to the emergency department for fevers, abdominal pain, catheter problems , or as needed. Followup with the [facility] next week as scheduled Follow-up with your primary physician this week to schedule an appointment and discuss the masses seen in the pancreas. Follow-up with Dr. Jon Hartman in his office for a recheck of the aortic aneurysm. Call the office tomorrow to set the appointment. Tell the payroll secretary he is aware of the your situation. Problem Qualifiers
[2018-06-26 15:15] LABS: BASO % 0.2 %; BASO ABS # 0.02 K/uL (0-0.2); EOS % 2.6 %; HEMATOCRIT 37.9 % (42-52); HEMOGLOBIN 13.3 g/dL (14.0-18.0); IG# 0.02 K/uL (0.00-0.02); LYMPH % 17.6 %; LYMPH ABS # 2.06 K/uL (1.2-3.4); MEAN CELL VOLUME 92.2 fL (80-100); MEAN CORPUSCULAR HEMOGLOBIN 32.4 pg (25-34); MEAN CORPUSCULAR HGB CONC 35.1 g/dl (32-36); MEAN PLATELET VOLUME 10.8 fL (7.4-10.4); MONO % 9.4 %; NEUT ABS # 8.21 K/uL (1.4-6.5); PLATELET COUNT 139 K/uL (130-400); RED CELL DISTRIBUTION WIDTH CV 13.8 % (11.5-14.5); RED CELL DISTRIBUTION WIDTH SD 46.6 fL (36.4-46.3); WHITE BLOOD COUNT 11.71 K/uL (4.8-10.8)
[2018-06-26 15:20] VITALS: Ht 185.4 cm; Wt 79.8 kg
[2018-06-26 15:34] LABS: ALBUMIN 3.5 gm/dl (3.4-5.0); CALCIUM 8.5 mg/dl (8.5-10.1); CREATININE 0.72 mg/dl (0.60-1.40); POTASSIUM 3.5 mmol/L (3.5-5.1); TOTAL PROTEIN 6.5 gm/dl (6.4-8.2)
--- NOTE | 2018-06-26 16:15 | DIAGNOSTIC IMAGING REPORT ---
ADDENDUM Upon further review, there is mild stranding suggested most pronounced posteriorly at the site of greatest tortuosity (for example series 3 image 192). This is new since the prior exam in 2009 and could raise concern for impending rupture. Vascular consultation is recommended for further evaluation at this time. The report will be called/faxed according to standard departmental protocol. Electronically signed by: Manny Hernandez M.D. 06/26/2018 4:28 PM Dictated Date/Time: 06/26/2018 4:26 PM ORIGINAL REPORT ABD/PELVIS WITHOUT FOR STONE CLINICAL HISTORY: 88 years-old Male presenting with lower abd pain, urinary symptoms. TECHNIQUE: Multidetector CT of the abdomen and pelvis was performed without the use of intravenous contrast. IV contrast: None. A dose lowering technique was used consistent with the principles of ALARA (as low as reasonably achievable). COMPARISON: 09/30/2010. CT DOSE (mGy.cm): The estimated cumulative dose is 661.03 mGy.cm. 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 Lung bases: Minimal basilar opacities, likely atelectasis. Multichamber enlargement of the heart. Coronary artery calcification. No pericardial or pleural effusion. Liver: Normal morphology. No liver lesion. Patent hepatic vasculature. Biliary: No intrahepatic or extrahepatic biliary ductal dilatation. Gallbladder contains gallstones. Pancreas: Moderate parenchymal atrophy, however, masslike sparing of parenchymal atrophy in the body-tail. This focal masslike region measures 3.5 cm. Suggestion of internal low-density spaces may suggest side branch ductal dilatation. Similar though less pronounced appearance at the distal tail (series 3 image 113).. Spleen: Normal noncontrast appearance. Adrenal glands: Increased nodular thickening of the bilateral adrenal glands. Underlying nodules likely present. Kidneys and ureters: Multiple well-defined hypodensities in the kidneys, indeterminate but likely cysts. Punctate nonobstructing calculus at the left upper pole. Renal vascular calcification noted. No hydronephrosis. Ureters nondistended. Bladder: Bladder decompressed with a Elizondo catheter. Pelvic organs: Prostate enlargement likely secondary to benign prostatic hyperplasia. Bowel: Diverticulosis of the sigmoid colon, which contains a moderate stool burden. No bowel wall thickening or colonic inflammatory change suggested. Moderate stool burden also noted more proximally. No bowel obstruction. The duodenum is displaced anteriorly due to the large abdominal aortic aneurysm. Peritoneal cavity: Trace free fluid in the pelvis. Fluid is low-density. No retroperitoneal fluid. No pneumoperitoneum. Lymph nodes: No gross lymphadenopathy allowing for noncontrast technique. Vasculature: Atherosclerosis. Significant interval increase in size of the infrarenal abdominal aortic aneurysm. No significant stranding or adjacent inflammatory change or hematoma to suggest rupture. Evaluation is limited without intravenous contrast. Maximal diameter on nonreformatted images measures 5.8 cm allowing for tortuosity. Curved planar reformatted image demonstrates a maximal diameter of 5.8 cm and a length of 16.4 cm. The aorta is tortuous. The aneurysm sac does not extend beyond the aortic bifurcation. Abdominal wall: Normal. Musculoskeletal: Degenerative changes of the spine. IMPRESSION: 1. Significant interval increase in size of the infrarenal abdominal aortic aneurysm, which measures 5.4 cm in diameter. Allowing for noncontrast technique, no evidence of rupture. Further evaluation with contrast could be considered as clinically indicated. 2. Masslike region in the pancreatic body-tail. A cyst indeterminate. Underlying mass lesion of the pancreas cannot be excluded. Further evaluation on a nonurgent basis with a contrast-enhanced exam recommended. 3. Diverticulosis. 4. Moderate stool burden suggest constipation. 5. Punctate nonobstructing left renal calculus. No hydronephrosis. 6. Prostatomegaly. Electronically signed by: Manny Hernandez M.D. 06/26/2018 4:14 PM Dictated Date/Time: 06/26/2018 3:52 PM
[2018-06-26] MEDS ORDERED: PRLSR20 PO (16:38)
[2018-06-26] MEDS ORDERED: PRAM0.1212 PO (16:38)
[2018-06-26] MEDS ORDERED: AMLO5TAB3 PO (16:38)
[2018-06-26] MEDS ORDERED: TAMS0.4C38 PO (16:38)
[2018-06-26] MEDS ORDERED: OPTIRAY 320 IV PRN (17:15)
--- NOTE | 2018-06-26 17:59 | DIAGNOSTIC IMAGING REPORT ---
ANGIO ABD/PELVIS WITH CONTRAST CLINICAL HISTORY: 88 years-old Male presenting with aortic aneurysm. TECHNIQUE: Multidetector CT angiography of the abdomen and pelvis was performed after the administration of intravenous contrast. 3-D volumetric and/or maximum intensity projection (MIP) images were subsequently reconstructed for review. IV contrast: 116 mL of Optiray 320. A dose lowering technique was used consistent with the principles of ALARA (as low as reasonably achievable). Stenosis measurements were based on NASCET-like criteria. COMPARISON: Noncontrast CT performed earlier today. CT DOSE (mGy.cm): The estimated cumulative dose is 416.46 mGy.cm. 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 Vasculature: Redemonstration of the infrarenal abdominal aortic aneurysm. Significant tortuosity the aneurysm sac. The abdominal aortic aneurysm extends from immediately distal to the renal arteries to the aortic bifurcation. The total length of this aneurysm sac is 16.1 cm. The proximal portion of the aneurysm sac straight the greatest degree of dilatation, measuring 5.9 cm in diameter. The aneurysm measures 4.7 cm in the midportion and 3.9 cm distally. There is a significant noncalcified ulcerated plaque along the right wall. The plaque is homogeneous in density and not suggestive of a crescent sign. The absence of hyperdensity within the plaque is corroborated on noncontrast images performed earlier today. The appearances trace stranding along the posterior and left lateral aspect of the hernia sac in the midportion is again noted. Some of this may represent small collateral vessels in small lymph nodes though the presence of fat infiltration/inflammatory change cannot be excluded. Remaining abdomen and pelvis: Lung bases: Minimal basilar opacities, likely atelectasis. Multichamber enlargement of the heart. Coronary artery calcification. No pericardial or pleural effusion. Liver: Normal morphology. No liver lesion allowing for the early arterial phase of contrast. Conventional hepatic arterial anatomy.. Biliary: No intrahepatic or extrahepatic biliary ductal dilatation. Gallbladder contains gallstones. Pancreas: Focal masslike sparing of parenchymal atrophy of the body-tail the pancreas. This region measures 3.5 cm and it may contain internal low density cystic regions. A smaller similar-appearing masslike sparing of parenchymal atrophy is also noted at the distal most tail (series 3 image 142). Spleen: Normal. Adrenal glands: Interval increase in nodular thickening of the bilateral adrenal glands, left greater than right. Kidneys and ureters: Multiple well-defined hypodensities in the kidneys, likely cysts. Punctate nonobstructing calculus at the left upper pole. Renal vascular calcification. No hydrocephalus. Ureters nondistended. Bladder: Bladder decompressed with a Elizondo catheter. Pelvic organs: Prostate enlargement likely secondary to benign prostatic hyperplasia. Bowel: Diverticulosis of the sigmoid colon. Hyperdensity in the sigmoid colon may represent a surgical or endoscopy clip (series 3 image 348). Additional hyperdensities within the colon may represent medication administration. Moderate stool burden. The hepatic flexure demonstrates suspected wall thickening (series 3 image 234). This appears circumferential and involves a length of 5 to 10 cm of the colon. No bowel obstruction. Anterior displacement of the duodenum secondary to the large abdominal aortic aneurysm. Peritoneal cavity: Trace free fluid in the pelvis. This fluid is low-density and not suggestive of hemorrhage. No retroperitoneal fluid. No pneumoperitoneum. Lymph nodes: No enlarged lymph nodes in the abdomen or pelvis. Abdominal wall: Normal. Musculoskeletal: Degenerative changes of the spine. IMPRESSION: 1. Infrarenal abdominal aortic aneurysm measuring up to 5.9 cm in diameter and extends from the renal arteries to the aortic bifurcation. Significant mural thrombus without evidence of acute hematoma either within the mural thrombus or in the surrounding soft tissues. Trace stranding is again noted. This may in part represent small collateral vessels and small lymph nodes though acute inflammation or edema cannot be excluded. Close clinical follow-up with vascular surgical consultation. 2. Circumferential wall thickening of the hepatic flexure of the colon along a length of 5 to 10 cm. This may be due to underdistention though true wall thickening cannot be excluded. Consider colonoscopy on a nonurgent basis versus imaging follow-up. 3. Masslike regions in the pancreatic body-tail and distal tail. Underlying pancreatic parenchymal masses cannot be excluded. This may represent focal regions of intraductal papillary mucinous neoplasms. Nonurgent dedicated pancreas CT or MR recommended on an outpatient basis. 4. Additional findings as above. Electronically signed by: Manny Hernandez M.D. 06/26/2018 5:58 PM Dictated Date/Time: 06/26/2018 5:40 PM
[2018-06-26] MEDS ORDERED: CARBIDOPA/LEVODOPA 50/200MG EXT REL TAB PO STA (18:27)
[2018-06-26] MEDS ORDERED: GABAPENTIN 100 MG CAP PO STA (18:27)
[2018-06-26 19:30] VITALS: BP 156/85; PULSE 78; O2SAT 97
== END 2018-06-26 19:33 | disposition home or self-care (01) ==
LOC: C.EDB 13:51 → C.EDA 19:33
DX: R33.9 Retention of urine, unspecified (principal); K86.9 Disease of pancreas, unspecified; I71.4 Abdominal aortic aneurysm, without rupture; G20 Parkinson's disease; F17.200 Nicotine dependence, unspecified, uncomplicated; Z79.51 Long term (current) use of inhaled steroids; Z79.01 Long term (current) use of anticoagulants; Z79.899 Other long term (current) drug therapy

== ENCOUNTER 2018-07-01 14:34 | Inpatient (IN) | payer BC, OTHER ==
[~2018-07-01] VITALS: Ht 182.9 cm; Wt 83.9 kg
[~2018-07-01 14:34] MED LIST changes: -AMLO10TA2 PO; +AMLO5TAB3 PO; +PRAM0.1212 PO; -PRAV20TA PO; +PRLSR20 PO; +TAMS0.4C38 PO
[2018-07-01] MEDS ORDERED: SODIUM CHLORIDE 0.9% 1000ML 1,000 ML IV STA (14:59)
[2018-07-01] MEDS ORDERED: SODIUM CHLORIDE 0.9% 1000ML 1,000 ML IV ONE (14:59)
[2018-07-01] MEDS ORDERED: NALOXONE HCL 0.4 MG/1 ML VIAL/CARP ONE (15:00)
[2018-07-01] MEDS ORDERED: PIPERACILLIN/TAZOBACTAM 4.5 GM/100ML D5W IV STA (15:13)
[2018-07-01] MEDS ORDERED: CARB25TA12 PO (15:15)
[2018-07-01] MEDS ORDERED: OMEP-334 PO (15:15)
[2018-07-01] MEDS ORDERED: POLY1POW2 PO (15:15)
[2018-07-01 15:27] LABS: BASO % 0.1 %; BASO ABS # 0.02 K/uL (0-0.2); EOS % 1.3 %; EOS ABS # 0.18 K/uL (0-0.5); HEMOGLOBIN 11.4 g/dL (14.0-18.0); IG# 0.05 K/uL (0.00-0.02); LYMPH % 15.6 %; LYMPH ABS # 2.08 K/uL (1.2-3.4); MEAN CELL VOLUME 92.2 fL (80-100); MEAN CORPUSCULAR HEMOGLOBIN 31.8 pg (25-34); MEAN CORPUSCULAR HGB CONC 34.5 g/dl (32-36); MEAN PLATELET VOLUME 10.9 fL (7.4-10.4); MONO % 11.9 %; MONO ABS # 1.59 K/uL (0.11-0.59); NEUT % 70.7 %; NEUT ABS # 9.42 K/uL (1.4-6.5); PLATELET COUNT 137 K/uL (130-400); RED CELL DISTRIBUTION WIDTH CV 13.8 % (11.5-14.5); RED CELL DISTRIBUTION WIDTH SD 46.7 fL (36.4-46.3); WHITE BLOOD COUNT 13.34 K/uL (4.8-10.8)
[2018-07-01] MEDS ORDERED: OPTIRAY 320 IV PRN (15:30)
[2018-07-01 15:35] LABS: INR 1.1 (0.9-1.1); PTT PATIENT 25.4 SECONDS (21.0-31.0)
--- NOTE | 2018-07-01 15:36 | DIAGNOSTIC IMAGING REPORT ---
HEAD CT NONCONTRAST CT DOSE: HISTORY: SYNCOPE TECHNIQUE: Multiaxial CT images of the head were performed without the use of intravenous contrast. Automated exposure control was utilized for this study. A dose lowering technique was utilized adhering to the principles of ALARA. Comparison: None. Findings: The paranasal sinuses and mastoid air cells are clear. The calvarium and skull base are intact. There is no mass, hematoma, midline shift, acute infarct. White matter hypodensity is nonspecific but suggestive of moderate microvascular ischemic change. The ventricles and sulci demonstrate moderate age-related involutional changes. Old lacunar infarct within the right thalamus. Impression: No acute intracranial abnormality. Atrophy and microvascular ischemic changes. Electronically signed by: Samuel Gorman M.D. 07/01/2018 3:34 PM Dictated Date/Time: 07/01/2018 3:31 PM
[2018-07-01 15:40] LABS: ALKALINE PHOSPHATASE 58 U/L (45-117); ALT/SGPT 7 U/L (12-78); AST/SGOT 10 U/L (15-37); BLOOD UREA NITROGEN 13 mg/dl (7-18); CALCIUM 8.2 mg/dl (8.5-10.1); CARBON DIOXIDE 23 mmol/L (21-32); CKMB 1.1 ng/ml (0.5-3.6); CREATININE 0.72 mg/dl (0.60-1.40); GLUCOSE 130 mg/dl (70-99); LIPASE 35 U/L (73-393); POTASSIUM 3.6 mmol/L (3.5-5.1); SODIUM 136 mmol/L (136-145); TOTAL PROTEIN 5.7 gm/dl (6.4-8.2)
[2018-07-01 15:42] VITALS: Ht 182.9 cm; Wt 83.9 kg
--- NOTE | 2018-07-01 15:52 | EMERGENCY ROOM VISIT NOTE ---
History Report prepared by Tanya: Oscar Shields Under the Supervision of: Dr. Augustus Stinson M.D. First contact with patient: 14:50 Chief Complaint: DIZZY Stated Complaint: DIZZINESS/LETHARGIC/SYNCOPE History of Present Illness The patient is an 88 year old male who presents to the Emergency Room following a syncopal episode that occurred this afternoon shortly prior to arrival. Per nursing staff the patient was not responding normally today and seemed unusually weak and fatigued. He was complaining about dizziness to the as well. She notes the symptoms onset suddenly. The patient's called for EMS, and upon their arrival the patient had a syncopal episode. EMS also note that the patient became diaphoretic and was slow to respond to them. The patient's states that the patient was in the emergency department last week due to not being able to void his urine. A catheter was placed. He has been drinking fluids and urinating frequently since the catheter was placed. There have not been any documented fevers recently. Upon arrival to the ED the patient was complaining of abdominal pain before becoming unresponsive. The adds that he does have a known abdominal aortic aneurysm. The patient was not complaining of any headache, numbness, or weakness. He is on Xarelto. 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 A total of 10 systems reviewed and were otherwise negative. 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 Nurse's notes were reviewed and I agree with. Family History Patient reports no known family medical history. Social History Smoking Status: Current Every Day Smoker Marital Status: Housing Status: lives with significant other Occupation Status: retired Current/Historical Medications Scheduled Amlodipine (Norvasc), 5 MG PO DAILY Carbidopa-Levodopa (Sinemet Cr 50-200 mg), 1 TAB PO BID Gabapentin (Neurontin), 100 MG PO TID Ipratropium-Albuterol (Combivent Respimat), 1 PUFF INH QID Omeprazole (Omeprazole Dr), 40 MG PO DAILY Polyethylene Glycol 3350 (Bulk (Polyethylene Glycol 3350), 17 GM PO DAILY Rivaroxaban (Xarelto), 20 MG PO DAILY Tamsulosin Hcl (Flomax), 0.4 MG PO HS Tiotropium Hernandez (Spiriva Handihaler), 1 CAP INH DAILY Scheduled PRN Carbidopa/Levodopa (Sinemet 25MG/100MG), 0.5 TAB PO DAILY PRN for parkinson Tramadol (Ultram), 50 MG PO TID PRN for Pain Allergies Coded Allergies: No Known Allergies (Unverified , 07/01/18) Physical Exam Vital Signs Date Time Temp Pulse Resp B/P (MAP) Pulse Ox O2 Delivery O2 Flow Rate FiO2 07/01/18 17:00 129 23 99 07/01/18 16:57 76/51 07/01/18 16:50 129 21 99 07/01/18 16:46 68/53 07/01/18 16:41 76/47 07/01/18 16:40 129 20 97 07/01/18 16:36 64/45 07/01/18 16:31 71/44 07/01/18 16:30 128 21 98 07/01/18 16:26 77/49 07/01/18 16:22 67/50 07/01/18 16:20 23 97 07/01/18 16:15 132 20 96 Nasal Cannula 6.0 07/01/18 16:13 133 20 81/47 97 6.0 07/01/18 16:12 81/47 07/01/18 16:10 136 24 98 07/01/18 16:07 138 07/01/18 16:05 135 21 07/01/18 16:00 16 98 07/01/18 15:55 12 99 07/01/18 15:54 43/30 07/01/18 15:54 36.9 116 12 43/30 99 07/01/18 15:50 105 22 98 07/01/18 15:45 96 26 109/78 99 07/01/18 15:40 95 19 98/76 99 07/01/18 15:39 106/75 07/01/18 15:35 94 22 98 Nasal Cannula 6.0 07/01/18 15:31 124/78 07/01/18 15:30 97 24 99 07/01/18 15:27 80 119/81 93 Room Air 114/77 07/01/18 15:15 95 Nasal Cannula 4.0 07/01/18 15:15 89 Nasal Cannula 4.0 07/01/18 15:10 89 Room Air 07/01/18 15:05 71/52 07/01/18 15:04 88 18 07/01/18 14:59 95 11 97 Room Air 07/01/18 14:57 88 07/01/18 14:54 146 13 95 07/01/18 14:53 81/46 07/01/18 14:40 93 Room Air 07/01/18 14:40 80 16 119/81 93 Room Air Physical Exam General: chronically-ill appearing older male, diaphoretic and minimally responsive. HEENT: Normal cephalic atraumatic. Pupils are pinpoint. Extraocular movements are intact. Oropharynx is pink with moist mucous membranes. No swelling of the mouth lips or tongue. Neck: Supple with a midline trachea. No meningeal signs or stiffness, no JVD or bruits. No Stridor. Chest: Clear to auscultation bilaterally. No wheezes or rhonchi. No increased work of breathing. Heart: regular rate and rhythm. Abdomen: Soft nontender, nondistended without rebound guarding or rigidity. Extremities: No cyanosis clubbing or edema. No calf tenderness or assymetry Spine/Back. Non tender to palpation. No CVA tenderness Skin: Good turgor without rashes. Neurologic exam: Patient moans, does not follow commands, moves all 4 extremities. Medical Decision & Procedures ER Provider Diagnostic Interpretation: Radiology results as stated below per my review and radiologist interpretation: CHEST COMBO ANGIOGRAPHY, ANGIO ABD/PELVIS WITH CONTRAST HISTORY: [address] years-old Male CT acute syncope with anemia and abdominal aortic aneurysm COMPARISON: CTA abdomen and pelvis 06/26/2018 TECHNIQUE: CTA of the chest, abdomen and pelvis was obtained with the use of 94 mL Optiray [address] images of the chest were also obtained. Measurements were obtained according to NASCET criteria. A dose lowering technique was used consistent with the principals of AGNIESZKA. FINDINGS: CTA CHEST: Mild multichamber cardiac enlargement. Trace pericardial effusion. Coronary arterial calcifications are noted. Moderate atherosclerosis of the aorta. Patency of the imaged great vessels. Tortuosity of the descending thoracic aorta without aneurysm or dissection. The noncontrast study demonstrates no intramural hematoma. The pulmonary arterial tree is not well opacified. CT CHEST: No pathologically enlarged lymph nodes. Trace left pleural effusion. Emphysema without pneumothorax or pleural effusion. No definite suspicious pulmonary nodules or masses. Minimal subsegmental bibasilar atelectasis. Central airways are patent. Soft tissues are unremarkable. Degenerative changes of the shoulders and spine. CTA ABDOMEN AND PELVIS: Fusiform aneurysmal dilation of the infrarenal abdominal aorta redemonstrated measuring up to 6.3 x 6.5 cm in transverse and AP dimension. The aneurysm extends for a length of 12.5 cm to the iliac bifurcation. Acute rupture along the superior right aspect of the aneurysm is noted on image 371 series 11 with discontinuity and irregularity of the vessel wall. No definite evidence of active extravasation. There is a moderate to large amount of hemorrhage within the retroperitoneum from the rupture measuring up to 6.5 x 9.3 cm which tracks into the pelvis along the right iliac vessels. No associated dissection. The renal arteries, celiac trunk, superior and inferior mesenteric arteries appear patent. Extensive mixed plaquing of the aorta and iliac vasculature. CT ABDOMEN/PELVIS: Liver, gallbladder, spleen are unremarkable. Scattered heterogeneous calcifications about the pancreas are unchanged. Suggested cystic area about the body and tail the pancreas redemonstrated. Nodular thickening of the left adrenal gland. Multiple bilateral renal cysts are unchanged with mild bilateral parenchymal thinning of the kidneys. Elizondo catheter within a decompressed bladder. Mild prostamegaly. No pathologically enlarged lymph nodes. No bowel obstruction or focal bowel wall thickening. Mild free pelvic fluid within the dependent pelvis. Mild generalized body wall edema. Demineralized appearance of the bones. Degenerative changes of the pelvis, hips and spine. Probable bone island of the right iliac wing. IMPRESSION: 1. Acute rupture of the infrarenal fusiform abdominal aortic aneurysm as detailed above with moderate to large volume of associated hemo-retroperitoneum within the abdomen tracking into the right pelvis along the iliac vessels. No definite evidence of active extravasation. 2. Additional findings as above. Findings were discussed with Dr. Stinson on 07/01/2018 at 3:40 PM. The above report was generated using voice recognition software. It may contain grammatical, syntax or spelling errors. Electronically signed by: Jed Pederson M.D. 07/01/2018 4:01 PM Dictated Date/Time: 07/01/2018 3:34 PM CHEST COMBO ANGIOGRAPHY, ANGIO ABD/PELVIS WITH CONTRAST HISTORY: [address] years-old Male CT acute syncope with anemia and abdominal aortic aneurysm COMPARISON: CTA abdomen and pelvis 06/26/2018 TECHNIQUE: CTA of the chest, abdomen and pelvis was obtained with the use of 94 mL Optiray [address] images of the chest were also obtained. Measurements were obtained according to NASCET criteria. A dose lowering technique was used consistent with the principals of AGNIESZKA. FINDINGS: CTA CHEST: Mild multichamber cardiac enlargement. Trace pericardial effusion. Coronary arterial calcifications are noted. Moderate atherosclerosis of the aorta. Patency of the imaged great vessels. Tortuosity of the descending thoracic aorta without aneurysm or dissection. The noncontrast study demonstrates no intramural hematoma. The pulmonary arterial tree is not well opacified. CT CHEST: No pathologically enlarged lymph nodes. Trace left pleural effusion. Emphysema without pneumothorax or pleural effusion. No definite suspicious pulmonary nodules or masses. Minimal subsegmental bibasilar atelectasis. Central airways are patent. Soft tissues are unremarkable. Degenerative changes of the shoulders and spine. CTA ABDOMEN AND PELVIS: Fusiform aneurysmal dilation of the infrarenal abdominal aorta redemonstrated measuring up to 6.3 x 6.5 cm in transverse and AP dimension. The aneurysm extends for a length of 12.5 cm to the iliac bifurcation. Acute rupture along the superior right aspect of the aneurysm is noted on image 371 series 11 with discontinuity and irregularity of the vessel wall. No definite evidence of active extravasation. There is a moderate to large amount of hemorrhage within the retroperitoneum from the rupture measuring up to 6.5 x 9.3 cm which tracks into the pelvis along the right iliac vessels. No associated dissection. The renal arteries, celiac trunk, superior and inferior mesenteric arteries appear patent. Extensive mixed plaquing of the aorta and iliac vasculature. CT ABDOMEN/PELVIS: Liver, gallbladder, spleen are unremarkable. Scattered heterogeneous calcifications about the pancreas are unchanged. Suggested cystic area about the body and tail the pancreas redemonstrated. Nodular thickening of the left adrenal gland. Multiple bilateral renal cysts are unchanged with mild bilateral parenchymal thinning of the kidneys. Elizondo catheter within a decompressed bladder. Mild prostamegaly. No pathologically enlarged lymph nodes. No bowel obstruction or focal bowel wall thickening. Mild free pelvic fluid within the dependent pelvis. Mild generalized body wall edema. Demineralized appearance of the bones. Degenerative changes of the pelvis, hips and spine. Probable bone island of the right iliac wing. IMPRESSION: 1. Acute rupture of the infrarenal fusiform abdominal aortic aneurysm as detailed above with moderate to large volume of associated hemo-retroperitoneum within the abdomen tracking into the right pelvis along the iliac vessels. No definite evidence of active extravasation. 2. Additional findings as above. Findings were discussed with Dr. Stinson on 07/01/2018 at 3:40 PM. The above report was generated using voice recognition software. It may contain grammatical, syntax or spelling errors. Electronically signed by: Jed Pederson M.D. 07/01/2018 4:01 PM Dictated Date/Time: 07/01/2018 3:[address]AST CT DOSE: HISTORY: SYNCOPE TECHNIQUE: Multiaxial CT images of the head were performed without the use of intravenous contrast. Automated exposure control was utilized for this study. A dose lowering technique was utilized adhering to the principles of ALARA. Comparison: None. Findings: The paranasal sinuses and mastoid air cells are clear. The calvarium and skull base are intact. There is no mass, hematoma, midline shift, acute infarct. White matter hypodensity is nonspecific but suggestive of moderate microvascular ischemic change. The ventricles and sulci demonstrate moderate age-related involutional changes. Old lacunar infarct within the right thalamus. Impression: No acute intracranial abnormality. Atrophy and microvascular ischemic changes. Electronically signed by: Samuel Gorman M.D. 07/01/2018 3:34 PM Dictated Date/Time: 07/01/2018 3:31 PM Laboratory Results 07/01/18 14:55 Red Blood Count 3.58, Mean Corpuscular Volume 92.2, Mean Corpuscular Hemoglobin 31.8, Mean Corpuscular Hemoglobin Concent 34.5, Mean Platelet Volume 10.9, Neutrophils (%) (Auto) 70.7, Lymphocytes (%) (Auto) 15.6, Monocytes (%) (Auto) 11.9, Eosinophils (%) (Auto) 1.3, Basophils (%) (Auto) 0.1, Neutrophils # (Auto ) 9.42, Lymphocytes # (Auto) 2.08, Monocytes # (Auto) 1.59, Eosinophils # (Auto ) 0.18, Basophils # (Auto) 0.02 07/01/18 14:55 Test 07/01/18 14:55 07/01/18 14:59 07/01/18 15:07 White Blood Count 13.34 K/uL (4.8-10.8) Red Blood Count 3.58 M/uL (4.7-6.1) Hemoglobin 11.4 g/dL (14.0-18.0) Hematocrit 33.0 % (42-52) Mean Corpuscular Volume 92.2 fL (80-100) Mean Corpuscular Hemoglobin 31.8 pg (25-34) Mean Corpuscular Hemoglobin Concent 34.5 g/dl (32-36) Platelet Count 137 K/uL (130-400) Mean Platelet Volume 10.9 fL (7.4-10.4) Neutrophils (%) (Auto) 70.7 % Lymphocytes (%) (Auto) 15.6 % Monocytes (%) (Auto) 11.9 % Eosinophils (%) (Auto) 1.3 % Basophils (%) (Auto) 0.1 % Neutrophils # (Auto) 9.42 K/uL (1.4-6.5) Lymphocytes # (Auto) 2.08 K/uL (1.2-3.4) Monocytes # (Auto) 1.59 K/uL (0.11-0.59) Eosinophils # (Auto) 0.18 K/uL (0-0.5) Basophils # (Auto) 0.02 K/uL (0-0.2) RDW Standard Deviation 46.7 fL (36.4-46.3) RDW Coefficient of Variation 13.8 % (11.5-14.5) Immature Granulocyte % (Auto) 0.4 % Immature Granulocyte # (Auto) 0.05 K/uL (0.00-0.02) Prothrombin Time 11.7 SECONDS (9.0-12.0) Prothromb Time International Ratio 1.1 (0.9-1.1) Activated Partial Thromboplast Time 25.4 SECONDS (21.0-31.0) Partial Thromboplastin Ratio 1.0 Anion Gap 10.0 mmol/L (3-11) Estimated GFR () 97.2 Estimated GFR (Non- 83.9 BUN/Creatinine Ratio 17.5 (10-20) Calcium Level 8.2 mg/dl (8.5-10.1) Total Bilirubin 1.0 mg/dl (0.2-1) Direct Bilirubin 0.3 mg/dl (0-0.2) Aspartate Amino Transf (AST/SGOT) 10 U/L (15-37) Alanine Aminotransferase (ALT/SGPT) 7 U/L (12-78) Alkaline Phosphatase 58 U/L (45-117) Total Creatine Kinase 39 U/L (39-308) Creatine Kinase MB 1.1 ng/ml (0.5-3.6) Total Protein 5.7 gm/dl (6.4-8.2) Albumin 3.0 gm/dl (3.4-5.0) Lipase 35 U/L (73-393) Creatine Kinase MB Ratio (0-3.0) Bedside Troponin I < 0.030 ng/ml (0-0.045) Laboratory studies as stated above per my review. Medications Administered Medications (Trade) Dose Ordered Sig/Sariah Route Start Time Stop Time Status Last Admin Dose Admin Naloxone HCl (Narcan Inj) 0.4 mg STK-MED ONCE .ROUTE 07/01/18 15:00 07/01/18 15:01 DC 07/01/18 15:18 0.4 MG Sodium Chloride 1,000 ml @ 999 mls/hr Q1H1M STAT IV 07/01/18 14:59 07/01/18 15:59 DC 07/01/18 14:55 999 MLS/HR Sodium Chloride 1,000 ml @ 200 mls/hr Q5H ONCE IV 07/01/18 14:59 07/01/18 18:12 DC 07/01/18 16:25 200 MLS/HR Fentanyl Citrate (Fentanyl Inj) 100 mcg STK-MED ONCE .ROUTE 07/01/18 16:05 07/01/18 16:06 DC 07/01/18 16:09 25 MCG Fentanyl Citrate (Fentanyl Inj) 25 mcg Q1H PRN IV 07/01/18 16:30 07/01/18 16:49 DC 07/01/18 16:40 25 MCG Fentanyl Citrate (Fentanyl Inj) 25 mcg Q5M PRN IV 07/01/18 17:00 07/01/18 18:12 DC 07/01/18 17:18 25 MCG ECG Per My Interpretation Indication: abdominal pain, altered mental status Rate (beats per minute): 87 Rhythm: normal sinus Findings: 1st degree AV block, LBBB, no acute ischemic change Comparison ECG Date: 06/29/2017 Change: no significant change ED Course 1450: Past medical records reviewed. The patient was evaluated in room A4B, and a complete history and physical examination were performed. 1459: Ordered Sodium Chloride 1000 mL @ 200 mL/hr IV, Sodium Chloride 1000 mL @ 999 mL/hr IV. 1500: Ordered Narcan 0.4 mg. 1513: Ordered Zosyn 4.5 gm IV. 1531: I discussed the case with Dr. White - Cardiology. He knows the patient well and has seen the patient recently. He was aware of the aneurysm. 1546: Dr. Maciel - ICU is at bedside and is aware of the patient. 1600: The family has decided taht the patient will be palliative care at this time. 1605: Ordered Fentanyl Citrate 25 mcg IV. 1621: I discussed the case with DR. Cande Garcia - [facility] [place]. She will evaluate for further treatment. 1632: I checked on the patient. His BP is in the 70s and is mentating. Medical Decision Differentials include, but are not limited to; ruptured AAA, aneurysm, sepsis, hyperglycemia, intracranial process, medication side effect, electrolyte or metabolic abnormality. This patient was brought in after having a syncopal episode at home. His called the ambulance. He also had an episode yesterday. He had had some back and abdominal pain apparently. The nurses came and got me as they said he was responsive upon arrival but became unresponsive as they were triaging and starting vitals on him they checked the blood sugar was within normal limits. I went and assessed him and he was minimally responsive he was diaphoretic and pale and unable to give any history. We did gave him Narcan 0.4 mg IV as his pupils seem to be somewhat pinpoint. Looking at his history and talking to his , he does have a history of an aneurysm that certainly was a concern as well as a central neurologic process or sepsis. This seemed to occur abruptly which makes sepsis less likely. I we did initially order IV antibiotics as well. We established 3 IVs and he was given 2 L normal IV saline bolus his blood pressure did bottom out in the 50s and it did come up and he became normotensive we took him over to CAT scan and he improved his mental status and looked much better stabilize his vital signs temporarily CAT scan shows a large leaking aneurysm with a large amount of intra-abdominal blood. I did call Dr. White, who is the patient's primary care physician, and knows him well he did come to the ER and talk to the and patient at length and helped in his care. I also called Dr. Hartman, the vascular surgeon, who promptly came and saw the patient. Shortly after Dr. Hartman arrived, the patient dropped his blood pressure again and became unresponsive. he was given IV fluids and 2 units of packed red red cells in an emergent transfusion. Dr. White has discussed with the and the patient when his mental status improved at that he wishes to be a DO NOT RESUSCITATE and does not want CPR intubation. Additionally, it does not want to be operated on but wants to be comfortable and comfort measures. At this point the surgery would have extremely high morbidity mortality and they have opted for comfort measures. I think that is reasonable given his age and comorbidities and severe disease at this point. He did receive multiple doses of IV pain medicine for comfort as well as fluids in the ER. While he was here his pulse did go up and he became tachycardic and his blood pressure is trending lower. He was admitted to the medical service for comfort measures. understands that this is a terminal events and his time is limited. She is in agreement with the plan. Medication Reconcilliation Current Medication List: was personally reviewed by me Blood Pressure Screening Patient's blood pressure: Low blood pressure Referred to inpatient service. Consults Time Called: 1526 Consulting Physician: Dr. White - Cardiology Returned Call: 1531 I discussed the case with Dr. White - Cardiology. He knows the patient well and has seen the patient recently. He was aware of the aneurysm. Additional Consults: Time Called: 1546 Consulted Physician: Dr. Maciel - ICU Returned Call: 1546 Additional Comments: Dr. Janell ALLEN is at bedside and is aware of the patient. Time Called: 1621 Consulted Physician: DR. Cande Garcia - [facility] [place] [facility] [place] Hospital[place] Returned Call: 1621 Additional Comments: I discussed the case with DR. Cande Key [facility] [place] Hospitalist. She will evaluate for further treatment. Impression Primary Impression: Ruptured aneurysm of artery Additional Impressions: AAA (abdominal aortic aneurysm) Syncope Critical Care I have personally spent greater than 120 minutes of critical care time in the direct management of this patient. This includes bedside care, interpretation of diagnostic studies, and testing, discussion with consultants, patient, and family members, and other required patient management activities. This 120 minutes is in excess of all separately billable procedures. Scribe Attestation The scribe's documentation has been prepared under my direction and personally reviewed by me in its entirety. I confirm that the note above accurately reflects all work, treatment, procedures, and medical decision making performed by me. Departure Information Dispostion Being Evaluated By Hospitalist Referrals Yordy White M.D. (PCP) Patient Instructions My [facility] Problem Qualifiers
[2018-07-01 15:54] VITALS: BP 43/30; PULSE 116; TEMP 36.9; O2SAT 99
--- NOTE | 2018-07-01 16:02 | DIAGNOSTIC IMAGING REPORT ---
CHEST COMBO ANGIOGRAPHY, ANGIO ABD/PELVIS WITH CONTRAST HISTORY: [address] years-old Male CT acute syncope with anemia and abdominal aortic aneurysm COMPARISON: CTA abdomen and pelvis 06/26/2018 TECHNIQUE: CTA of the chest, abdomen and pelvis was obtained with the use of 94 mL Optiray [address] CT images of the chest were also obtained. Measurements were obtained according to NASCET criteria. A dose lowering technique was used consistent with the principals of AGNIESZKA. FINDINGS: CTA CHEST: Mild multichamber cardiac enlargement. Trace pericardial effusion. Coronary arterial calcifications are noted. Moderate atherosclerosis of the aorta. Patency of the imaged great vessels. Tortuosity of the descending thoracic aorta without aneurysm or dissection. The noncontrast study demonstrates no intramural hematoma. The pulmonary arterial tree is not well opacified. CT CHEST: No pathologically enlarged lymph nodes. Trace left pleural effusion. Emphysema without pneumothorax or pleural effusion. No definite suspicious pulmonary nodules or masses. Minimal subsegmental bibasilar atelectasis. Central airways are patent. Soft tissues are unremarkable. Degenerative changes of the shoulders and spine. CTA ABDOMEN AND PELVIS: Fusiform aneurysmal dilation of the infrarenal abdominal aorta redemonstrated measuring up to 6.3 x 6.5 cm in transverse and AP dimension. The aneurysm extends for a length of 12.5 cm to the iliac bifurcation. Acute rupture along the superior right aspect of the aneurysm is noted on image 371 series 11 with discontinuity and irregularity of the vessel wall. No definite evidence of active extravasation. There is a moderate to large amount of hemorrhage within the retroperitoneum from the rupture measuring up to 6.5 x 9.3 cm which tracks into the pelvis along the right iliac vessels. No associated dissection. The renal arteries, celiac trunk, superior and inferior mesenteric arteries appear patent. Extensive mixed plaquing of the aorta and iliac vasculature. CT ABDOMEN/PELVIS: Liver, gallbladder, spleen are unremarkable. Scattered heterogeneous calcifications about the pancreas are unchanged. Suggested cystic area about the body and tail the pancreas redemonstrated. Nodular thickening of the left adrenal gland. Multiple bilateral renal cysts are unchanged with mild bilateral parenchymal thinning of the kidneys. Elizondo catheter within a decompressed bladder. Mild prostamegaly. No pathologically enlarged lymph nodes. No bowel obstruction or focal bowel wall thickening. Mild free pelvic fluid within the dependent pelvis. Mild generalized body wall edema. Demineralized appearance of the bones. Degenerative changes of the pelvis, hips and spine. Probable bone island of the right iliac wing. IMPRESSION: 1. Acute rupture of the infrarenal fusiform abdominal aortic aneurysm as detailed above with moderate to large volume of associated hemo-retroperitoneum within the abdomen tracking into the right pelvis along the iliac vessels. No definite evidence of active extravasation. 2. Additional findings as above. Findings were discussed with Dr. Stinson on 07/01/2018 at 3:40 PM. The above report was generated using voice recognition software. It may contain grammatical, syntax or spelling errors. Electronically signed by: Jed Pederson M.D. 07/01/2018 4:01 PM Dictated Date/Time: 07/01/2018 3:34 PM
[2018-07-01] MEDS ORDERED: FENTANYL CITRATE INJ 50 MCG/1 ML 2 ML VIAL ONE (16:05)
[2018-07-01] MEDS ORDERED: FENTANYL CITRATE INJ 50 MCG/1 ML 2 ML VIAL IV STA (16:08)
[2018-07-01 16:13] VITALS: BP 81/47; PULSE 133; O2SAT 97
[2018-07-01] MEDS ORDERED: FENTANYL CITRATE INJ 50 MCG/1 ML 2 ML VIAL IV PRN ×2 (16:30→17:00)
[2018-07-01 16:57] VITALS: BP_DIAS 51
[2018-07-01] MEDS: FENTANYL CITRATE INJ 50 MCG/1 ML 2 ML VIAL IV PRN ×3 (16:57→17:18)
[2018-07-01] MEDS ORDERED: TRAMADOL HCL 50 MG TAB PO PRN (17:15)
[2018-07-01] MEDS ORDERED: ONDANSETRON INJ 2 MG/ML 2 ML VIAL IV PRN (17:15)
[2018-07-01] MEDS ORDERED: CARBIDOPA/LEVODOPA 25/100MG TAB PO PRN (17:15)
[2018-07-01] MEDS ORDERED: MAGNESIUM HYDROXIDE SUSP 30 ML UDC PO PRN (17:15)
[2018-07-01] MEDS ORDERED: MoRPHine SULFATE 2 MG/ML CARP IV PRN (17:15)
[2018-07-01] MEDS ORDERED: SODIUM CHLORIDE 0.9% IV PRN (17:15)
[2018-07-01] MEDS ORDERED: ACETAMINOPHEN 325 MG TAB PO PRN (17:15)
[2018-07-01 17:40] VITALS: BP_SYST 62; PULSE 131; O2SAT 99
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
[2018-07-01] MEDS ORDERED: IPRATROPIUM BROMIDE/ALBUTEROL respimat INH INH SCH (20:00)
[2018-07-01] MEDS ORDERED: CARBIDOPA/LEVODOPA 50/200MG EXT REL TAB PO SCH (20:00)
[2018-07-01] MEDS ORDERED: GABAPENTIN 100 MG CAP PO SCH (20:00)
[2018-07-02 07:11] LABS: ISTAT CREATININE 0.6 mg/dl (0.6-1.3); ISTAT IONIZED CALCIUM 1.15 mmol/l (1.12-1.32); ISTAT POTASSIUM 3.6 mEq/L (3.3-5.0)
--- NOTE | 2018-07-02 07:41 | Progress Note ---
Progress Note Date of Service Jul 02, 2018. Progress Note admission physician assigned to patient to me ,for me and group easy to take over in the next day, I did not physically see ,or know any of this patient, this is just for memorandum .
[2018-07-02] MEDS ORDERED: TIOTROPIUM BROMIDE 5 PUFF/90 MCG INH INH SCH (08:00)
[2018-07-02] MEDS ORDERED: POLYETHYLENE (MIRALAX) 17 GM PACK PO SCH (08:00)
[2018-07-02] MEDS ORDERED: PANTOprazole SOD 40 MG TAB PO SCH (08:00)
--- NOTE | 2018-07-03 11:41 | Death Summary ---
Summary of Admission Date Jul 01, 2018 at 17:07 Date & Time of Jul 01, 2018. 1924 Cause of Cardiac arrest secondary to leaking abdominal aortic aneurysm Hospital Course 88 y/o M who presented to the ED earlier in the day due to a syncopal episode. Syncope was this afternoon shortly prior to arrival to the ED. Pt was not responding normally today and seemed unusually weak and fatigued with complaints of dizziness to his as well. Pt had felt well just prior to the sudden onset of syncope, although he had noted abdominal pain before becoming unresponsive. EMS was called and stated pt became diaphoretic and was slow to respond to them when they arrived. Pt has a known abdominal aortic aneurysm. Pt denies fever, SOB, chest pain, n/v/c/d, LE pain or swelling. He is on Xarelto. Pt was noted to be hypoTN in the ED. He was found to have a slow leaking abd aneurysm on CTA. HypoTN improved s/p IVF and 2 units PRBC. Pt was seen at bedside by his long time PCP, Dr. White. It was decided that pt would move to comfort care. This was relayed to me directly by both Dr. White and Dr. Stinson. Pt was admitted for comfort care, however later in the evening. Copy To Yordy White M.D.
== END 2018-07-01 19:24 | disposition expired | DRG 301 ==
LOC: EDBD 14:34 → C.EDA 14:35 → C.4E 17:07 → ENRESERV 17:12
PROVIDERS: ADMIT Family Medicine; ATTEND Hospitalist
DX: I71.3 Abdominal aortic aneurysm, ruptured (principal); R55 Syncope and collapse; I95.9 Hypotension, unspecified; F17.200 Nicotine dependence, unspecified, uncomplicated; Z66 Do not resuscitate; Z51.5 Encounter for palliative care; Z79.01 Long term (current) use of anticoagulants; Z79.899 Other long term (current) drug therapy